=== PATIENT | female | born 1945 | race Two or more races ===

== ENCOUNTER 2022-04-23 15:40 | Emergency (ER) | payer OTHER, SELFPAY ==
[2022-04-23 16:48] VITALS: BP 160/49; PULSE 88; RESP 18; TEMP 36.8; O2SAT 99; BMI 17.4
--- OUTSIDE RECORDS SUMMARY | 2022-04-23 23:16 | XMS_ITS | Continuity of Care Document ---
:1945 Author Organization [facility] Address [address] [place] [id number]- Care Team Providers Name Role Phone Wili Chahal MD, Savita Heaton Primary Care Physician [place] [facility] [place] - 12/12/[address] [address]- Encounter Diagnosis Renal insufficiency (Final) - 12/05/21 Hyperkalemia (Final) - 12/05/21 Abdominal pain (Final) - 12/05/21 Jejunostomy tube present (Final) - 12/05/21 Discharge Disposition: A-Transfer VNA/Home Health Attending Physician: Alva Lindsay MD Admitting Physician: Bronson Harrell MD Referring Physician: Not on Staff, Referring MD Allergies, Adverse Reactions, Alerts Substance Reaction Severity Status folic acid Active Immunizations Given and Recorded Vaccine Date Status Refusal Reason SARS-CoV-2 (COVID-19) mRNA BNT-162b2 vac 12/15/20 Recorde d SARS-CoV-2 (COVID-19) mRNA BNT-162b2 vac 11/24/20 Recorde d Medications acetaminophen 650 mg oral tablet, extended release 1 tablet = 650 mg, By Mouth, Every 8 hours, PRN Pain , Mild, # 30 tablet, 0 Refills, Maintenance, 12/12/21 10:53:00 EDT, ER Tablet, Partial fill upon patient request if the prescription is for a schedule II opioid drug. Start Date: 12/12/21 Stop Date: 12/22/21 Status: Orderedacetaminophen/butalbital/caffeine 325 mg-50 mg-40 mg oral tablet 1 tablet, By Mouth, 3 times a day, PRN as needed, Maintenance, 12/05/21 19:11:00 EDT, Tablet Start Date: 12/05/21 Status: OrderedALPRAZolam 0.5 mg oral tablet 0.5 mg, 1, tablet, By Mouth, Daily, PRN, Maintenance, as needed for anxiety, 12/05/21 19:14:00 EDT Start Date: 12/05/21 Status: Orderedatorvastatin 40 mg oral tablet 1 tablet = 40 mg, By Mouth, Daily, Maintenance, 12/05/21 19:13:00 EDT, Tablet Start Date: 12/05/21 Status: OrderedCalcium Carbonate = 600 mg, By Mouth, Daily, 0 Refills, Maintenance, 08/16/13 17:47:24 Start Date: 08/16/13 Status: Orderedcholecalciferol 2000 intl units oral capsule 1 capsule = 50 mcg, By Mouth, Daily, Maintenance, 12/05/21 19:15:00 EDT, Capsule Start Date: 12/05/21 Status: OrderedEliquis 5 mg oral tablet 1 tablet = 5 mg, By Mouth, 2 times a day, Maintenance, 12/05/21 19:14:00 EDT, Tablet Start Date: 12/05/21 Status: Orderedenalapril 20 mg oral tablet 1 tablet = 20 mg, By Mouth, Daily, 0 Refills, 04/22/12 16:37:34 EDT, Tablet Start Date: 04/22/12 Status: Orderedferrous sulfate 325 mg oral enteric coated tablet 325 mg, 1, tablet, By Mouth, Daily, # 30 tablet, Refills 0, Maintenance, 12/12/21 10:53:00 EDT, Partial fill upon patient request if the prescription is for a schedule II opioid drug. Start Date: 12/12/21 Status: Orderedloperamide 2 mg oral capsule 2 mg, 1, capsule, By Mouth, 2 times a day, Maintenance, 12/05/21 19:13:00 EDT Start Date: 12/05/21 Status: Orderedmirtazapine 7.5 mg oral tablet 1 tablet = 7.5 mg, By Mouth, Daily at bedtime, Maintenance, 12/05/21 19:13:00 EDT Start Date: 12/05/21 Status: Orderedpantoprazole 40 mg oral delayed release tablet 1 tablet = 40 mg, By Mouth, Daily, Maintenance, 12/05/21 19:13:00 EDT, EC Tablet Start Date: 12/05/21 Status: OrderedProAir HFA 2 puffs, Inhalation, 4 times a day, PRN Wheezing/Shortness of Breath, 0 Refills, Maintenance, 08/16/13 8:23:53 EST Start Date: 08/16/13 Status: OrderedRestasis 1 drops, Eyes, Both, 2 times a day, 0 Refills, Maintenance, 12/12/21 10:55:00 EDT, Partial fill uponpatient request if the prescription is for a schedule II opioid drug. Start Date: 12/12/21 Status: Orderedsertraline 50 mg oral tablet 1 tablet = 50 mg, By Mouth, Daily, Maintenance, 12/05/21 19:14:00 EDT, Tablet Start Date: 12/05/21 Status: Orderedtemazepam 30 mg oral capsule 1 capsule = 30 mg, By Mouth, Daily at bedtime, 0 Refills, Maintenance, 08/16/13 8:24:25 EST, Capsule Start Date: 08/16/13 Status: Orderedthiamine 100 mg oral tablet 100 mg, 1, tablet, By Mouth, Daily, Maintenance, 12/05/21 19:15:00 EDT Start Date: 12/05/21 Status: OrderedVitamin C 500 mg oral tablet 1 tablet = 500 mg, By Mouth, Daily, Maintenance, 12/05/21 19:15:00 EDT, Tablet Start Date: 12/05/21 Status: Ordered Problem List Condition Effective Dates Status Health Status Informant Leukocytosis(Confirmed) Active PVD (peripheral vascular disease) with Active claudication(Confirmed) Underweight(Confirmed) Active Vital Signs Most recent to oldest 1 2 3 [Reference Range]: Height 147 cm 147 cm 147 cm (12/12/21 9:23 AM) (12/12/21 6:22 AM) (12/11/21 10: 25 PM) Weight 36 kg 36 kg (12/05/21 10:55 PM) (12/05/21 9:19 PM) Oxygen Saturation [94-100 %] 100 % 100 % 99 % (12/12/21 9:23 AM) (12/12/21 6:22 AM) (12/11/21 10: 25 PM) Pulse Rate [55-90 bpm] 63 bpm 70 bpm 61 bpm (12/12/21 9:23 AM) (12/12/21 6:22 AM) (12/11/21 10: 25 PM) Body Mass Index [18.5-24.99] 16.66 *L* (12/05/21 9:19 PM) Blood Pressure [90-138/55-84 111/48 mm Hg 94/57 mm Hg 112 /52 mm Hg mm Hg] (12/12/21 9:23 AM) (12/12/21 6:22 AM) (12/11/21 10: 25 PM) Respiratory Rate [16-30 18 br/min 16 br/min 14 br/mi n br/min] (12/12/21 9:23 AM) (12/12/21 6:22 AM) *L* (12/11/21 10:25 P M) Temperature [96.8-100.4 98.4 DegF 97.6 DegF 98.0 Deg F DegF] (12/12/21 6:22 AM) (12/11/21 10:25 PM) (12/11/21 6: 10 PM) Mode of Delivery (Oxygen) Room air Room air Room a ir (12/12/21:23 AM) (12/12/21 6:22 AM) (12/11/21 10: 25 PM) Blood pressure sites Arm, right Arm, left Arm, right (12/12/21:23 AM) (12/12/21:22 AM) (12/11/21 10: 25 PM) Temperature Route Oral Oral Oral (12/12/21 6:22 AM) (12/11/21 10:25 PM) (12/11/21 6: 10 PM) Dry Weight 36 kg (12/05/21: PM) Weight Obtained Via Bed scale (12/05/21 9:19 PM)
== END 2022-04-23 23:15 | disposition left against medical advice (07) ==
PROVIDERS: Emergency Provider Emergency Medicine
DX: R10.9 Unspecified abdominal pain (principal); Z93.3 Colostomy status
CPT/HCPCS: 99202; 99281; 99282

== ENCOUNTER 2022-06-12 17:18 | Outpatient (REF) | payer OTHER, SELFPAY ==
[2022-06-12 17:42] LABS: Amphetamine Screen Urine Not Detected (Not Detect); Barbiturates, Urine POSITIVE (Not Detect); Benzodiazepines Screen Urine POSITIVE (Not Detect); Cannabinoid Screen Urine Not Detected (Not Detect); Cocaine Screen Urine Not Detected (Not Detect); Fentanyl, urine Not Detected (Not Detect); Opiate Screen Urine Not Detected (Not Detect); Phencyclidine Screen Urine Not Detected (Not Detect)
[2022-06-21 07:52] LABS: Codeine, Ur NEGATIVE; Hydrocodone, Ur NEGATIVE; Oxycodone, Ur NEGATIVE
[2022-06-21 07:53] LABS: Hydromorphone, Ur NEGATIVE; Morphine, Ur NEGATIVE; Oxymorphone, Ur NEGATIVE
[2022-06-21 07:54] LABS: Lorazepam GCMS Urine NEGATIVE; Nordiazepam, GCMS Urine NEGATIVE; Norhydrocodone, Ur NEGATIVE; Noroxycodone, Ur NEGATIVE; Oxazepam, GCMS Urine 3440
== END 2022-06-12 17:19 | disposition home or self-care (01) ==
LOC: HO.LNP 17:18
PROVIDERS: Visit Provider Internal Medicine
DX: F11.20 Opioid dependence, uncomplicated (principal); Z79.899 Other long term (current) drug therapy
CPT/HCPCS: 80307; 80346; 80364; 80365

== ENCOUNTER → 2022-09-03 13:00 | Outpatient (BNVA) | payer OTHER, SELFPAY | PROVIDERS: PCP Internal Medicine; Visit Provider Surgery | DX: Z93.4 Other artificial openings of gastrointestinal tract status (principal) | CPT/HCPCS: 99202 ==

== ENCOUNTER 2023-03-25 14:34 | Outpatient (AMB) | payer OTHER, SELFPAY ==
--- NOTE | 2023-03-25 14:42 | MHC.PC.OV ---
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 Accompanied by: Grand Child/ Proxy Allergies folic acid [FOLIC ACID] Allergy (Mild, Verified 03/25/23 15:03) AGITATION, visual hallucinations Medication List - Last Reconciled 03/25/23 by Savita Chahal MD adhesive tape ([employer]) As directed amlodipine 5 mg PO DAILY 90 days apixaban (Eliquis) 5 mg PO BID 90 days ascorbic acid (vitamin C) 500 mg PO DAILY 90 days atorvastatin 40 mg PO BEDTIME 90 days cholecalciferol (vitamin D3) 50 mcg PO DAILY 60 days clotrimazole 1% 1 appl topical BID 4 weeks [colostomy supplies pouch and paste As directed] cyanocobalamin (vitamin B-12) 1,000 mcg PO DAILY 90 days diltiazem HCl 240 mg PO DAILY 90 days enalapril maleate 20 mg PO DAILY 90 days [enteralite infinity bags As directed] ferrous sulfate 325 mg PO BID 90 days fluticasone furoate-vilanterol 100-25 mcg/dose inhalation food supplemt, lactose-reduced (Ensure oral liquid) 1 ea PO TID 30 days [gauze split As directed] hydrochlorothiazide 25 mg PO DAILY loperamide 2 mg PO BID 30 days mirtazapine 7.5 mg PO BEDTIME 90 days ostomy supplies As directed pantoprazole 40 mg PO DAILY sertraline 50 mg PO DAILY temazepam 30 mg PO BEDTIME PRN thiamine HCl (vitamin B1) 100 mg PO DAILY 90 days underpads (Certainty Underpads) As directed vitamin A 10,000 units PO DAILY zinc sulfate 220 mg PO DAILY Tobacco use date assessed: 10/14/22 Fall risk assessment: No Falls in past year Last assessed Fall Risk: 03/25/23 Dental Screening Dental Screen Date: 03/25/23 Did you have a dental visit in the last 12 months?: No Did you have a dental problem in the last 6 months where you did not have access to dental care?: No Was dental information given to patient?: Patient has dentist HPI HPI Comments History of Present Illness Details This is a 77-year-old female with hypertension, atrial fibrillation, pure hypercholesterolemia, and mild recurrent major depression that comes today as hospital discharge follow-up with discharge date 03/21/2023 due to accidental removal of jejunostomy to the was placed in the hospital again. Blood pressure stable. Atrial fibrillation on chronic anticoagulation and denies any active bleeding also had anemia requiring blood transfusion recently. Lipid panel will be order. Depression well controlled with mirtazapine. Complains of occasional headaches. Walks with a cane for gait stability. Has developed stage II sacral ulcer and has some stage I small lumbar ulcer too. No chest pain or shortness of breath. Accompanied by granddaughter which she is her healthcare proxy. [facility] [place] Medical History (Updated 03/25/23 @ 15:36 by Savita Chahal MD) Afib Anemia B12 deficiency Chronic GERD Colostomy in place Essential hypertension Hospital discharge follow-up Jaundice Jejunostomy present Jejunostomy tube leak Localized swelling of both lower legs Malnutrition Mild recurrent major depression Pneumonia Pure hypercholesterolemia Surgical History H/O ileostomy Family History Mother Diabetes Father No problems noted. Social History Housing: Apartment Alcohol intake: former Patient Tobacco Use Status: Current someday Tobacco user Tobacco use type: Cigarette Cigarettes Per Day: 1 e-Cigarette/Vaping Use: Never Used Second Hand Smoke Exposure: No service: No Current occupational status: retired Cognitive needs: Yes Hearing needs: No Vision needs: No Questionnaire Thrive Questionnaire Date Thrive assessed: 10/14/22 JULIO-7 AMB Questionnaire JULIO-7 Date JULIO - 7 assessed: 10/14/22 Source: Developed by Drs. Enoch Vicente, Helena Mares, Gus Knight and colleagues, with an educational pam from [employer]. Review of Systems Const All systems reviewed & are unremarkable except as noted in HPI and below Eyes Reports no additional complaints, Denies change in vision and Denies other visual disturbances Card Denies chest pain at rest, Denies chest pain with activity, Denies edema, Denies irregular heart rhythm, Denies claudication, Denies dyspnea, Denies dyspnea on exertion, Denies orthopnea, Denies paroxysmal nocturnal dyspnea and Denies slow heart rate Resp Denies cough, Denies dyspnea and Denies dyspnea on exertion GI Denies abdominal pain, Denies change in bowel habits, Denies excessive flatus, Denies nausea and Denies vomiting Denies urinary incontinence, Denies urinary hesitancy and Denies urinary urgency Musc Denies atrophy, Denies deformity and Denies limited range of motion Skin/Breast Denies bleeding lesions, Denies changing lesions, Reports lesions and Denies rash Physical exam (Primary Care) Vital Signs: Last Vital Signs BP 122/58 L 03/25/23 14:43 BMI result Body Mass Index 16.0 Tobacco/Smoking Status: Tobacco use Status Tobacco use date assessed 10/14/22 03/25/23 14:51 Patient Tobacco Use Status Current someday Tobacco 03/25/23 14:51 Tobacco use type Cigarette 03/25/23 14:51 e-Cigarette/Vaping Use Never Used 03/25/23 14:51 Thrive Assessment: Date of Thrive Assessment Date Thrive assessed 10/14/22 03/25/23 14:51 Const Limitations: ambulation with cane Eyes General: appearance normal, both eyes and all related structures Eyelids: Yes eyelids normal Conjunctivae: conjunctivae normal Neck Neck: Yes normal visual inspection and Yes supple Resp Effort & Inspection: normal respiratory effort Auscultation: clear to auscultation bilaterally Cardio Jugular venous distension: no JVD Rate: regular rate Rhythm: regular rhythm Heart sounds: S1 normal heart sound present and S2 normal heart sound present GI Other: PEG tube in place Inspection: Yes normal to inspection Palpation (GI): Soft to palpation and nontender Auscultation: normal bowel sounds Skin Other: stage 1 decubitus ulcer in lumbar and stage 2 sacral ulcer Extrem General: Yes full ROM Assessment and Plan Assessment & Plan (1) Hospital discharge follow-up: Code(s): Z09 - Encounter for follow-up examination after completed treatment for conditions other than malignant neoplasm Plan: Discharge date 03/21/2023 due to accidental removal are all jejunostomy tube. Was successfully reinserted. (2) Jejunostomy present: Code(s): Z93.4 - Other artificial openings of gastrointestinal tract status Plan: Successfully reinserted (3) Essential hypertension: Code(s): I10 - Essential (primary) hypertension Plan: Continue enalapril, hydrochlorothiazide and amlodipine. Blood pressure goal is equal or less than 130/80. (4) Pure hypercholesterolemia: Code(s): E78.00 - Pure hypercholesterolemia, unspecified Plan: Continue statins (5) Afib: Code(s): I48.91 - Unspecified atrial fibrillation Plan: Continue Eliquis (6) Mild recurrent major depression: Code(s): F33.0 - Major depressive disorder, recurrent, mild Plan: Continue mirtazapine (7) Stage 2 skin ulcer of sacral region: Code(s): L98.429 - Non-pressure chronic ulcer of back with unspecified severity Plan: Advised to change position every 2 hours. Orders: Orders Vitamin B12 and Folate Today E53.8 - Deficiency of other specified B group vitamins Comprehensive [place]. Panel Fast Today N18.30 - Chronic kidney disease, stage 3 unspecified IRON PROFILE Today D64.9 - Anemia, unspecified Lipid Panel Today E78.5 - Hyperlipidemia, unspecified Vitamin D 25-OH Total Today E55.9 - Vitamin D deficiency, unspecified Complete Blood Count Auto Diff Today D64.9 - Anemia, unspecified Medications: New white petrolatum 41% ([employer]) 1 appl topical DAILY 30 days PRN 50 grams 2RF dry skin L98.429 - Non-pressure chronic ulcer of back with unspecified severity adhesive tape ([employer]) As directed 250 ea 6RF Z93.4 - Other artificial openings of gastrointestinal tract status Coding Level of Care Code TCM Mod MDM <= 7 Days Diagnoses Hospital discharge follow-up Z09 Jejunostomy present Z93.4 Essential hypertension I10 Pure hypercholesterolemia E78.00 Afib I48.91 Mild recurrent major depression F33.0 Stage 2 skin ulcer of sacral region L98.429 Time Spent (min) 28
[2023-03-25 14:43] VITALS: BP 122/58; BMI 16.0
== END 2023-03-25 15:15 | disposition home or self-care (01) ==
PROVIDERS: PCP Internal Medicine; Visit Provider Internal Medicine
DX: I10 Essential (primary) hypertension (principal); F33.0 Major depressive disorder, recurrent, mild; L98.429 Non-pressure chronic ulcer of back with unspecified severity; Z93.4 Other artificial openings of gastrointestinal tract status; I48.91 Unspecified atrial fibrillation; Z09 Encounter for follow-up examination after completed treatment for conditions other than malignant neoplasm; E78.00 Pure hypercholesterolemia, unspecified
CPT/HCPCS: 99214

== ENCOUNTER 2023-06-19 06:33 | Outpatient (REF) | payer OTHER, SELFPAY ==
[2023-06-19 06:53] LABS: SCAN SMEAR FLAG 1
[2023-06-19 06:55] LABS: Basophils Absolute Auto 0.1 X10*3/uL (0.0-0.2); Basophils Percent Auto 1.3 % (0-2); Eosinophils Absolute Auto 0.7 X10*3/uL (0.0-0.4); Eosinophils Percent Auto 8.2 % (0-4); Hematocrit 31.1 % (37.0-47.0); Hemoglobin 9.4 g/dl (12.0-16.0); Imm Gran Abs Auto 0.05 X10*3/uL (0.00-0.03); Imm Gran Pct Auto 0.6 % (0.0-0.4); Lymphocytes Absolute Auto 1.6 X10*3/uL (1.2-4.9); Lymphocytes Percent Auto 18.8 % (20-40); MANUAL DIFF FLAG SCAN; Mean Corpuscular HGB Conc 30.2 g/dl (31.0-35.0); Mean Corpuscular Hemoglobin 26.2 pg (27.0-33.0); Mean Corpuscular Volume 86.6 fL (80.0-98.0); Monocytes Absolute Auto 0.8 X10*3/uL (0.1-1.2); Monocytes Percent Auto 9.8 % (2-11); Neutrophils Absolute Auto 5.1 x10*3/uL (2.0-8.3); Neutrophils Percent Auto 61.3 % (45-73); PLT CLUMP 1; Red Blood Count 3.59 X10*6/uL (4.20-5.50); Red Cell Distribution Width 18.6 % (11.0-16.0)
[2023-06-19 06:59] LABS: Alanine Aminotransferase 26 U/L (0-31); Albumin Level 2.8 g/dL (3.5-5.0); Alkaline Phosphatase 97 U/L (39-117); Anion Gap 13 (12-20); Aspartate Amino Transferase 21 U/L (5-31); Bilirubin Total 0.5 mg/dL (0.0-1.0); Blood Urea Nitrogen 22 mg/dL (9-16); Calcium 10.1 mg/dL (8.4-10.2); Carbon Dioxide 19 mmol/L (22-29); Chloride 111 mmol/L (96-108); Estimated Glomerular Filt Rate > 60; Glucose Random 102 mg/dL (60-115); Potassium 4.1 mmol/L (3.3-5.1); Sodium 139 mmol/L (135-145); Total Protein 6.3 g/dL (6.5-8.0)
[2023-06-19 07:20] LABS: PLT ABN DIST 1
[2023-06-19 08:05] LABS: Platelet Count 263 X10*3/uL (160-400); White Blood Count 8.3 X10*3/uL (4.8-10.8)
[2023-06-19 08:06] LABS: SLIDE REVIEW VERIFIED
== END 2023-06-19 06:34 | disposition home or self-care (01) ==
LOC: HO.MMNH2L 06:33
PROVIDERS: Visit Provider Family Medicine
DX: I10 Essential (primary) hypertension (principal)
CPT/HCPCS: 36415; 80053; 85025

== ENCOUNTER 2023-06-22 06:31 | Outpatient (REF) | payer OTHER, SELFPAY ==
[2023-06-22 07:27] LABS: Basophils Percent Auto 1.1 % (0-2); PLT CLUMP 1
[2023-06-22 07:31] LABS: Basophils Absolute Auto 0.1 X10*3/uL (0.0-0.2); Eosinophils Absolute Auto 0.7 X10*3/uL (0.0-0.4); Eosinophils Percent Auto 8.7 % (0-4); Hematocrit 33.7 % (37.0-47.0); Imm Gran Abs Auto 0.05 X10*3/uL (0.00-0.03); Imm Gran Pct Auto 0.7 % (0.0-0.4); Lymphocytes Absolute Auto 1.4 X10*3/uL (1.2-4.9); Lymphocytes Percent Auto 17.9 % (20-40); MANUAL DIFF FLAG SCAN; Mean Corpuscular HGB Conc 29.7 g/dl (31.0-35.0); Mean Corpuscular Hemoglobin 26.5 pg (27.0-33.0); Mean Corpuscular Volume 89.2 fL (80.0-98.0); Monocytes Absolute Auto 0.6 X10*3/uL (0.1-1.2); Monocytes Percent Auto 8.3 % (2-11); Neutrophils Absolute Auto 4.8 x10*3/uL (2.0-8.3); Neutrophils Percent Auto 63.3 % (45-73); PLT ABN DIST 1; Red Blood Count 3.78 X10*6/uL (4.20-5.50); Red Cell Distribution Width 18.9 % (11.0-16.0); SCAN SMEAR FLAG 1
[2023-06-22 07:35] LABS: Anion Gap 12 (12-20); Blood Urea Nitrogen 24 mg/dL (9-16); Carbon Dioxide 17 mmol/L (22-29); Chloride 112 mmol/L (96-108); Estimated Glomerular Filt Rate > 60; Glucose Random 79 mg/dL (60-115); Potassium 4.7 mmol/L (3.3-5.1); Sodium 136 mmol/L (135-145)
[2023-06-22 08:26] LABS: Mean Platelet Volume 13.4 fL (9.4-12.3); Platelet Count 350 X10*3/uL (160-400); SLIDE REVIEW VERIFIED; White Blood Count 7.6 X10*3/uL (4.8-10.8)
== END 2023-06-22 06:32 | disposition home or self-care (01) ==
LOC: HO.MMNH2L 06:31
PROVIDERS: Visit Provider Family Medicine
DX: I10 Essential (primary) hypertension (principal)
CPT/HCPCS: 36415; 80048; 85025

== ENCOUNTER 2023-06-29 07:29 | Outpatient (REF) | payer OTHER, SELFPAY ==
[2023-06-29 06:08] LABS: MANUAL DIFF FLAG NO
[2023-06-29 06:57] LABS: Basophils Absolute Auto 0.1 X10*3/uL (0.0-0.2); Basophils Percent Auto 1.1 % (0-2); Eosinophils Absolute Auto 0.6 X10*3/uL (0.0-0.4); Eosinophils Percent Auto 8.6 % (0-4); Hematocrit 30.5 % (37.0-47.0); Hemoglobin 9.3 g/dl (12.0-16.0); Imm Gran Abs Auto 0.04 X10*3/uL (0.00-0.03); Imm Gran Pct Auto 0.5 % (0.0-0.4); Lymphocytes Absolute Auto 1.6 X10*3/uL (1.2-4.9); Lymphocytes Percent Auto 21.7 % (20-40); Mean Corpuscular HGB Conc 30.5 g/dl (31.0-35.0); Mean Corpuscular Hemoglobin 26.3 pg (27.0-33.0); Mean Corpuscular Volume 86.4 fL (80.0-98.0); Mean Platelet Volume 12.1 fL (9.4-12.3); Monocytes Absolute Auto 0.5 X10*3/uL (0.1-1.2); Monocytes Percent Auto 7.2 % (2-11); Neutrophils Absolute Auto 4.5 x10*3/uL (2.0-8.3); Neutrophils Percent Auto 60.9 % (45-73); Platelet Count 383 X10*3/uL (160-400); Red Blood Count 3.53 X10*6/uL (4.20-5.50); Red Cell Distribution Width 18.4 % (11.0-16.0); White Blood Count 7.4 X10*3/uL (4.8-10.8)
[2023-06-29 07:19] LABS: Anion Gap 12 (12-20); Blood Urea Nitrogen 29 mg/dL (9-16); Carbon Dioxide 17 mmol/L (22-29); Chloride 114 mmol/L (96-108); Estimated Glomerular Filt Rate > 60; Glucose Random 79 mg/dL (60-115); Potassium 4.4 mmol/L (3.3-5.1); Sodium 139 mmol/L (135-145)
== END 2023-06-29 07:30 | disposition home or self-care (01) ==
LOC: HO.MMNH2L 07:29
PROVIDERS: Visit Provider Family Medicine
DX: I10 Essential (primary) hypertension (principal)
CPT/HCPCS: 36415; 80048; 85025

== ENCOUNTER 2023-07-06 07:19 | Outpatient (REF) | payer OTHER, SELFPAY ==
[2023-07-06 06:04] LABS: MANUAL DIFF FLAG NO
[2023-07-06 06:38] LABS: Basophils Absolute Auto 0.1 X10*3/uL (0.0-0.2); Basophils Percent Auto 0.9 % (0-2); Eosinophils Absolute Auto 0.6 X10*3/uL (0.0-0.4); Eosinophils Percent Auto 8.4 % (0-4); Hematocrit 29.7 % (37.0-47.0); Hemoglobin 9.1 g/dl (12.0-16.0); Imm Gran Abs Auto 0.02 X10*3/uL (0.00-0.03); Imm Gran Pct Auto 0.3 % (0.0-0.4); Lymphocytes Absolute Auto 1.6 X10*3/uL (1.2-4.9); Lymphocytes Percent Auto 22.1 % (20-40); Mean Corpuscular HGB Conc 30.6 g/dl (31.0-35.0); Mean Corpuscular Hemoglobin 26.5 pg (27.0-33.0); Mean Corpuscular Volume 86.3 fL (80.0-98.0); Mean Platelet Volume 12.6 fL (9.4-12.3); Monocytes Absolute Auto 0.5 X10*3/uL (0.1-1.2); Monocytes Percent Auto 6.9 % (2-11); Neutrophils Absolute Auto 4.3 x10*3/uL (2.0-8.3); Neutrophils Percent Auto 61.4 % (45-73); Platelet Count 206 X10*3/uL (160-400); Red Blood Count 3.44 X10*6/uL (4.20-5.50); Red Cell Distribution Width 17.9 % (11.0-16.0)
[2023-07-06 06:53] LABS: Anion Gap 13 (12-20); Blood Urea Nitrogen 25 mg/dL (9-16); Calcium 9.3 mg/dL (8.4-10.2); Carbon Dioxide 16 mmol/L (22-29); Chloride 110 mmol/L (96-108); Estimated Glomerular Filt Rate > 60; Glucose Random 93 mg/dL (60-115); Potassium 4.7 mmol/L (3.3-5.1); Sodium 134 mmol/L (135-145)
== END 2023-07-06 07:20 | disposition home or self-care (01) ==
LOC: HO.MMNH2L 07:19
PROVIDERS: Visit Provider Family Medicine
DX: I10 Essential (primary) hypertension (principal)
CPT/HCPCS: 36415; 80048; 85025

== ENCOUNTER 2023-07-13 06:27 | Outpatient (REF) | payer OTHER, SELFPAY ==
[2023-07-13 06:03] LABS: MANUAL DIFF FLAG NO
[2023-07-13 06:57] LABS: Basophils Percent Auto 0.4 % (0-2); Eosinophils Absolute Auto 0.6 X10*3/uL (0.0-0.4); Eosinophils Percent Auto 9.2 % (0-4); Hemoglobin 9.5 g/dl (12.0-16.0); Imm Gran Abs Auto 0.02 X10*3/uL (0.00-0.03); Imm Gran Pct Auto 0.3 % (0.0-0.4); Lymphocytes Absolute Auto 1.3 X10*3/uL (1.2-4.9); Lymphocytes Percent Auto 19.9 % (20-40); Mean Corpuscular HGB Conc 30.6 g/dl (31.0-35.0); Mean Corpuscular Hemoglobin 26.8 pg (27.0-33.0); Mean Corpuscular Volume 87.3 fL (80.0-98.0); Monocytes Absolute Auto 0.4 X10*3/uL (0.1-1.2); Monocytes Percent Auto 6.5 % (2-11); Neutrophils Absolute Auto 4.3 x10*3/uL (2.0-8.3); Neutrophils Percent Auto 63.7 % (45-73); Red Blood Count 3.55 X10*6/uL (4.20-5.50); Red Cell Distribution Width 17.6 % (11.0-16.0); White Blood Count 6.7 X10*3/uL (4.8-10.8)
[2023-07-13 07:02] LABS: Platelet Count 146 X10*3/uL (160-400)
[2023-07-13 07:12] LABS: Anion Gap 12 (12-20); Blood Urea Nitrogen 27 mg/dL (9-16); Calcium 9.7 mg/dL (8.4-10.2); Carbon Dioxide 17 mmol/L (22-29); Chloride 113 mmol/L (96-108); Estimated Glomerular Filt Rate > 60; Glucose Random 107 mg/dL (60-115); Potassium 4.4 mmol/L (3.3-5.1); Sodium 138 mmol/L (135-145)
== END 2023-07-13 06:28 | disposition home or self-care (01) ==
LOC: HO.MMNH2L 06:27
PROVIDERS: Visit Provider Family Medicine
DX: I10 Essential (primary) hypertension (principal)
CPT/HCPCS: 36415; 80048; 85025

== ENCOUNTER 2023-07-21 06:35 | Outpatient (REF) | payer OTHER, SELFPAY ==
[2023-07-21 06:16] LABS: MANUAL DIFF FLAG NO
[2023-07-21 06:49] LABS: Basophils Percent Auto 0.7 % (0-2); Eosinophils Absolute Auto 0.6 X10*3/uL (0.0-0.4); Eosinophils Percent Auto 9.7 % (0-4); Hematocrit 30.5 % (37.0-47.0); Hemoglobin 9.4 g/dl (12.0-16.0); Imm Gran Abs Auto 0.01 X10*3/uL (0.00-0.03); Imm Gran Pct Auto 0.2 % (0.0-0.4); Lymphocytes Absolute Auto 1.5 X10*3/uL (1.2-4.9); Lymphocytes Percent Auto 24.3 % (20-40); Mean Corpuscular HGB Conc 30.8 g/dl (31.0-35.0); Mean Corpuscular Volume 84.5 fL (80.0-98.0); Monocytes Absolute Auto 0.5 X10*3/uL (0.1-1.2); Monocytes Percent Auto 8.7 % (2-11); Neutrophils Absolute Auto 3.5 x10*3/uL (2.0-8.3); Neutrophils Percent Auto 56.4 % (45-73); Platelet Count 159 X10*3/uL (160-400); Red Blood Count 3.61 X10*6/uL (4.20-5.50); Red Cell Distribution Width 17.1 % (11.0-16.0); White Blood Count 6.1 X10*3/uL (4.8-10.8)
[2023-07-21 06:55] LABS: Anion Gap 12 (12-20); Blood Urea Nitrogen 33 mg/dL (9-16); Calcium 9.7 mg/dL (8.4-10.2); Carbon Dioxide 19 mmol/L (22-29); Chloride 112 mmol/L (96-108); Estimated Glomerular Filt Rate > 60; Glucose Random 90 mg/dL (60-115); Potassium 5.1 mmol/L (3.3-5.1); Sodium 138 mmol/L (135-145)
== END 2023-07-21 06:36 | disposition home or self-care (01) ==
LOC: HO.MMNH2L 06:35
PROVIDERS: Visit Provider Family Medicine
DX: I10 Essential (primary) hypertension (principal)
CPT/HCPCS: 36415; 80048; 85025

== ENCOUNTER 2023-07-28 06:30 | Outpatient (REF) | payer OTHER, SELFPAY ==
[2023-07-28 06:16] LABS: MANUAL DIFF FLAG NO
[2023-07-28 06:27] LABS: Basophils Absolute Auto 0.1 X10*3/uL (0.0-0.2); Basophils Percent Auto 0.9 % (0-2); Eosinophils Absolute Auto 0.4 X10*3/uL (0.0-0.4); Eosinophils Percent Auto 5.3 % (0-4); Hematocrit 36.1 % (37.0-47.0); Hemoglobin 11.1 g/dl (12.0-16.0); Imm Gran Abs Auto 0.01 X10*3/uL (0.00-0.03); Imm Gran Pct Auto 0.2 % (0.0-0.4); Lymphocytes Absolute Auto 1.4 X10*3/uL (1.2-4.9); Lymphocytes Percent Auto 21.7 % (20-40); Mean Corpuscular HGB Conc 30.7 g/dl (31.0-35.0); Mean Corpuscular Volume 84.5 fL (80.0-98.0); Mean Platelet Volume 12.5 fL (9.4-12.3); Monocytes Absolute Auto 0.4 X10*3/uL (0.1-1.2); Monocytes Percent Auto 5.7 % (2-11); Neutrophils Absolute Auto 4.4 x10*3/uL (2.0-8.3); Neutrophils Percent Auto 66.2 % (45-73); Platelet Count 243 X10*3/uL (160-400); Red Blood Count 4.27 X10*6/uL (4.20-5.50); Red Cell Distribution Width 16.4 % (11.0-16.0); White Blood Count 6.6 X10*3/uL (4.8-10.8)
[2023-07-28 06:55] LABS: Anion Gap 11 (12-20); Blood Urea Nitrogen 21 mg/dL (9-16); Calcium 10.1 mg/dL (8.4-10.2); Carbon Dioxide 14 mmol/L (22-29); Chloride 118 mmol/L (96-108); Estimated Glomerular Filt Rate > 60; Glucose Random 90 mg/dL (60-115); Sodium 139 mmol/L (135-145)
== END 2023-07-28 06:31 | disposition home or self-care (01) ==
LOC: HO.MMNH2L 06:30
PROVIDERS: Visit Provider Family Medicine
DX: I10 Essential (primary) hypertension (principal)
CPT/HCPCS: 36415; 80048; 85025

== ENCOUNTER 2023-08-03 10:40 | Outpatient (REF) | payer OTHER, SELFPAY | END 2023-08-03 10:41 | disposition home or self-care (01) | LOC: HO.MMNH2L 10:40 | PROVIDERS: Visit Provider Family Medicine | DX: I10 Essential (primary) hypertension (principal) | CPT/HCPCS: 36415; 80048; 85025 ==

== ENCOUNTER 2023-08-10 06:58 | Outpatient (REF) | payer OTHER, SELFPAY ==
[2023-08-10 06:30] LABS: MANUAL DIFF FLAG NO
[2023-08-10 06:56] LABS: Basophils Absolute Auto 0.1 X10*3/uL (0.0-0.2); Basophils Percent Auto 0.8 % (0-2); Eosinophils Absolute Auto 0.4 X10*3/uL (0.0-0.4); Eosinophils Percent Auto 3.8 % (0-4); Hematocrit 35.7 % (37.0-47.0); Hemoglobin 11.1 g/dl (12.0-16.0); Imm Gran Abs Auto 0.03 X10*3/uL (0.00-0.03); Imm Gran Pct Auto 0.3 % (0.0-0.4); Lymphocytes Absolute Auto 1.4 X10*3/uL (1.2-4.9); Lymphocytes Percent Auto 14.6 % (20-40); Mean Corpuscular HGB Conc 31.1 g/dl (31.0-35.0); Mean Corpuscular Volume 83.6 fL (80.0-98.0); Monocytes Absolute Auto 0.8 X10*3/uL (0.1-1.2); Monocytes Percent Auto 8.2 % (2-11); Neutrophils Absolute Auto 6.7 x10*3/uL (2.0-8.3); Neutrophils Percent Auto 72.3 % (45-73); Platelet Count 158 X10*3/uL (160-400); Red Blood Count 4.27 X10*6/uL (4.20-5.50); White Blood Count 9.2 X10*3/uL (4.8-10.8)
[2023-08-10 07:15] LABS: Anion Gap 10 (12-20); Blood Urea Nitrogen 36 mg/dL (9-16); Carbon Dioxide 16 mmol/L (22-29); Chloride 113 mmol/L (96-108); Estimated Glomerular Filt Rate > 60; Glucose Random 99 mg/dL (60-115); Potassium 4.6 mmol/L (3.3-5.1); Sodium 134 mmol/L (135-145)
== END 2023-08-10 06:59 | disposition home or self-care (01) ==
LOC: HO.MMNH2L 06:58
PROVIDERS: Visit Provider Family Medicine
DX: I10 Essential (primary) hypertension (principal)
CPT/HCPCS: 36415; 80048; 85025

== ENCOUNTER 2023-08-17 06:27 | Outpatient (REF) | payer OTHER, SELFPAY ==
[2023-08-17 06:10] LABS: MANUAL DIFF FLAG NO
[2023-08-17 06:48] LABS: Anion Gap 8 (12-20); Blood Urea Nitrogen 33 mg/dL (9-16); Calcium 9.4 mg/dL (8.4-10.2); Carbon Dioxide 17 mmol/L (22-29); Chloride 116 mmol/L (96-108); Estimated Glomerular Filt Rate > 60; Glucose Random 95 mg/dL (60-115); Potassium 4.7 mmol/L (3.3-5.1); Sodium 136 mmol/L (135-145)
[2023-08-17 06:59] LABS: Basophils Absolute Auto 0.1 X10*3/uL (0.0-0.2); Basophils Percent Auto 0.6 % (0-2); Eosinophils Absolute Auto 0.4 X10*3/uL (0.0-0.4); Eosinophils Percent Auto 4.8 % (0-4); Hemoglobin 10.9 g/dl (12.0-16.0); Imm Gran Abs Auto 0.03 X10*3/uL (0.00-0.03); Imm Gran Pct Auto 0.3 % (0.0-0.4); Lymphocytes Absolute Auto 1.5 X10*3/uL (1.2-4.9); Lymphocytes Percent Auto 16.2 % (20-40); Mean Corpuscular HGB Conc 31.1 g/dl (31.0-35.0); Mean Corpuscular Hemoglobin 26.1 pg (27.0-33.0); Mean Corpuscular Volume 83.7 fL (80.0-98.0); Monocytes Absolute Auto 0.7 X10*3/uL (0.1-1.2); Monocytes Percent Auto 7.4 % (2-11); Neutrophils Absolute Auto 6.4 x10*3/uL (2.0-8.3); Neutrophils Percent Auto 70.7 % (45-73); Platelet Count 169 X10*3/uL (160-400); Red Blood Count 4.18 X10*6/uL (4.20-5.50); Red Cell Distribution Width 15.7 % (11.0-16.0)
== END 2023-08-17 06:28 | disposition home or self-care (01) ==
LOC: HO.MMNH2L 06:27
PROVIDERS: Visit Provider Family Medicine
DX: I10 Essential (primary) hypertension (principal)
CPT/HCPCS: 36415; 80048; 85025

== ENCOUNTER 2023-08-24 06:36 | Outpatient (REF) | payer OTHER, SELFPAY ==
[2023-08-24 06:24] LABS: MANUAL DIFF FLAG NO
[2023-08-24 07:18] LABS: Basophils Absolute Auto 0.1 X10*3/uL (0.0-0.2); Basophils Percent Auto 0.5 % (0-2); Eosinophils Absolute Auto 0.3 X10*3/uL (0.0-0.4); Eosinophils Percent Auto 2.9 % (0-4); Hematocrit 35.6 % (37.0-47.0); Hemoglobin 11.3 g/dl (12.0-16.0); Imm Gran Abs Auto 0.02 X10*3/uL (0.00-0.03); Imm Gran Pct Auto 0.2 % (0.0-0.4); Lymphocytes Absolute Auto 1.2 X10*3/uL (1.2-4.9); Lymphocytes Percent Auto 11.9 % (20-40); Mean Corpuscular HGB Conc 31.7 g/dl (31.0-35.0); Mean Corpuscular Hemoglobin 26.3 pg (27.0-33.0); Monocytes Absolute Auto 0.4 X10*3/uL (0.1-1.2); Monocytes Percent Auto 4.5 % (2-11); Neutrophils Absolute Auto 7.8 x10*3/uL (2.0-8.3); Platelet Count 148 X10*3/uL (160-400); Red Blood Count 4.29 X10*6/uL (4.20-5.50); Red Cell Distribution Width 15.9 % (11.0-16.0); White Blood Count 9.7 X10*3/uL (4.8-10.8)
[2023-08-24 07:37] LABS: Anion Gap 12 (12-20); Blood Urea Nitrogen 26 mg/dL (9-16); Carbon Dioxide 15 mmol/L (22-29); Chloride 114 mmol/L (96-108); Estimated Glomerular Filt Rate > 60; Glucose Random 80 mg/dL (60-115); Potassium 4.1 mmol/L (3.3-5.1); Sodium 137 mmol/L (135-145)
== END 2023-08-24 06:37 | disposition home or self-care (01) ==
LOC: HO.MMNH2L 06:36
PROVIDERS: Visit Provider Family Medicine
DX: I10 Essential (primary) hypertension (principal)
CPT/HCPCS: 36415; 80048; 85025

== ENCOUNTER 2023-08-31 06:29 | Outpatient (REF) | payer OTHER, SELFPAY ==
[2023-08-31 06:07] LABS: MANUAL DIFF FLAG NO
[2023-08-31 06:54] LABS: Basophils Percent Auto 0.5 % (0-2); Eosinophils Absolute Auto 0.4 X10*3/uL (0.0-0.4); Eosinophils Percent Auto 5.6 % (0-4); Hematocrit 37.6 % (37.0-47.0); Hemoglobin 11.8 g/dl (12.0-16.0); Imm Gran Abs Auto 0.03 X10*3/uL (0.00-0.03); Imm Gran Pct Auto 0.4 % (0.0-0.4); Lymphocytes Absolute Auto 1.8 X10*3/uL (1.2-4.9); Lymphocytes Percent Auto 22.4 % (20-40); Mean Corpuscular HGB Conc 31.4 g/dl (31.0-35.0); Mean Corpuscular Hemoglobin 26.1 pg (27.0-33.0); Mean Corpuscular Volume 83.2 fL (80.0-98.0); Monocytes Absolute Auto 0.6 X10*3/uL (0.1-1.2); Monocytes Percent Auto 7.9 % (2-11); Neutrophils Percent Auto 63.2 % (45-73); Platelet Count 155 X10*3/uL (160-400); Red Blood Count 4.52 X10*6/uL (4.20-5.50); Red Cell Distribution Width 15.7 % (11.0-16.0); White Blood Count 7.9 X10*3/uL (4.8-10.8)
[2023-08-31 07:01] LABS: Anion Gap 11 (12-20); Blood Urea Nitrogen 35 mg/dL (9-16); Calcium 9.7 mg/dL (8.4-10.2); Carbon Dioxide 13 mmol/L (22-29); Chloride 115 mmol/L (96-108); Estimated Glomerular Filt Rate > 60; Glucose Random 84 mg/dL (60-115); Potassium 4.7 mmol/L (3.3-5.1); Sodium 134 mmol/L (135-145)
== END 2023-08-31 06:30 | disposition home or self-care (01) ==
LOC: HO.MMNH2L 06:29
PROVIDERS: Visit Provider Family Medicine
DX: I10 Essential (primary) hypertension (principal)
CPT/HCPCS: 36415; 80048; 85025

== ENCOUNTER 2023-09-07 06:52 | Outpatient (REF) | payer OTHER, SELFPAY ==
[2023-09-07 06:10] LABS: MANUAL DIFF FLAG NO
[2023-09-07 07:18] LABS: Basophils Percent Auto 0.6 % (0-2); Eosinophils Absolute Auto 0.4 X10*3/uL (0.0-0.4); Eosinophils Percent Auto 5.8 % (0-4); Hematocrit 35.5 % (37.0-47.0); Hemoglobin 11.1 g/dl (12.0-16.0); Imm Gran Abs Auto 0.01 X10*3/uL (0.00-0.03); Imm Gran Pct Auto 0.2 % (0.0-0.4); Lymphocytes Absolute Auto 1.5 X10*3/uL (1.2-4.9); Lymphocytes Percent Auto 23.5 % (20-40); Mean Corpuscular HGB Conc 31.3 g/dl (31.0-35.0); Mean Corpuscular Hemoglobin 25.9 pg (27.0-33.0); Mean Corpuscular Volume 82.8 fL (80.0-98.0); Monocytes Absolute Auto 0.4 X10*3/uL (0.1-1.2); Monocytes Percent Auto 6.5 % (2-11); Neutrophils Absolute Auto 4.1 x10*3/uL (2.0-8.3); Neutrophils Percent Auto 63.4 % (45-73); Platelet Count 137 X10*3/uL (160-400); Red Blood Count 4.29 X10*6/uL (4.20-5.50); Red Cell Distribution Width 15.4 % (11.0-16.0); White Blood Count 6.5 X10*3/uL (4.8-10.8)
[2023-09-07 07:29] LABS: Anion Gap 13 (12-20); Blood Urea Nitrogen 26 mg/dL (9-16); Calcium 10.1 mg/dL (8.4-10.2); Carbon Dioxide 17 mmol/L (22-29); Chloride 113 mmol/L (96-108); Estimated Glomerular Filt Rate > 60; Glucose Random 85 mg/dL (60-115); Sodium 139 mmol/L (135-145)
== END 2023-09-07 06:53 | disposition home or self-care (01) ==
LOC: HO.MMNH2L 06:52
PROVIDERS: Visit Provider Family Medicine
DX: I10 Essential (primary) hypertension (principal)
CPT/HCPCS: 36415; 80048; 85025

== ENCOUNTER 2023-09-14 05:52 | Outpatient (REF) | payer OTHER, SELFPAY ==
[2023-09-14 05:47] LABS: MANUAL DIFF FLAG NO
[2023-09-14 06:46] LABS: Basophils Absolute Auto 0.1 X10*3/uL (0.0-0.2); Basophils Percent Auto 0.9 % (0-2); Eosinophils Absolute Auto 0.4 X10*3/uL (0.0-0.4); Eosinophils Percent Auto 5.4 % (0-4); Hematocrit 35.9 % (37.0-47.0); Hemoglobin 11.2 g/dl (12.0-16.0); Imm Gran Abs Auto 0.01 X10*3/uL (0.00-0.03); Imm Gran Pct Auto 0.2 % (0.0-0.4); Lymphocytes Absolute Auto 1.6 X10*3/uL (1.2-4.9); Mean Corpuscular HGB Conc 31.2 g/dl (31.0-35.0); Mean Corpuscular Hemoglobin 25.9 pg (27.0-33.0); Mean Corpuscular Volume 82.9 fL (80.0-98.0); Monocytes Absolute Auto 0.5 X10*3/uL (0.1-1.2); Monocytes Percent Auto 7.3 % (2-11); Neutrophils Absolute Auto 4.1 x10*3/uL (2.0-8.3); Neutrophils Percent Auto 62.2 % (45-73); Platelet Count 136 X10*3/uL (160-400); Red Blood Count 4.33 X10*6/uL (4.20-5.50); Red Cell Distribution Width 15.1 % (11.0-16.0); White Blood Count 6.6 X10*3/uL (4.8-10.8)
[2023-09-14 07:17] LABS: Anion Gap 12 (12-20); Blood Urea Nitrogen 27 mg/dL (9-16); Calcium 10.1 mg/dL (8.4-10.2); Carbon Dioxide 15 mmol/L (22-29); Chloride 114 mmol/L (96-108); Estimated Glomerular Filt Rate > 60; Glucose Random 81 mg/dL (60-115); Potassium 4.2 mmol/L (3.3-5.1); Sodium 137 mmol/L (135-145)
== END 2023-09-14 05:53 | disposition home or self-care (01) ==
LOC: HO.MMNH2L 05:52
PROVIDERS: Visit Provider Family Medicine
DX: I10 Essential (primary) hypertension (principal)
CPT/HCPCS: 36415; 80048; 85025

== ENCOUNTER 2023-09-21 06:05 | Outpatient (REF) | payer OTHER, SELFPAY ==
[2023-09-21 05:53] LABS: MANUAL DIFF FLAG NO
[2023-09-21 06:50] LABS: Basophils Percent Auto 0.2 % (0-2); Eosinophils Absolute Auto 0.3 X10*3/uL (0.0-0.4); Eosinophils Percent Auto 3.5 % (0-4); Hematocrit 38.6 % (37.0-47.0); Hemoglobin 12.3 g/dl (12.0-16.0); Imm Gran Abs Auto 0.01 X10*3/uL (0.00-0.03); Imm Gran Pct Auto 0.1 % (0.0-0.4); Lymphocytes Percent Auto 23.2 % (20-40); Mean Corpuscular HGB Conc 31.9 g/dl (31.0-35.0); Mean Corpuscular Hemoglobin 26.2 pg (27.0-33.0); Mean Corpuscular Volume 82.3 fL (80.0-98.0); Monocytes Absolute Auto 0.7 X10*3/uL (0.1-1.2); Monocytes Percent Auto 8.7 % (2-11); Neutrophils Absolute Auto 5.5 x10*3/uL (2.0-8.3); Neutrophils Percent Auto 64.3 % (45-73); Platelet Count 154 X10*3/uL (160-400); Red Blood Count 4.69 X10*6/uL (4.20-5.50); Red Cell Distribution Width 14.6 % (11.0-16.0); White Blood Count 8.5 X10*3/uL (4.8-10.8)
[2023-09-21 06:51] LABS: Anion Gap 10 (12-20); Blood Urea Nitrogen 27 mg/dL (9-16); Calcium 10.7 mg/dL (8.4-10.2); Carbon Dioxide 16 mmol/L (22-29); Chloride 114 mmol/L (96-108); Estimated Glomerular Filt Rate > 60; Glucose Random 86 mg/dL (60-115); Potassium 4.1 mmol/L (3.3-5.1); Sodium 136 mmol/L (135-145)
== END 2023-09-21 06:06 | disposition home or self-care (01) ==
LOC: HO.MMNH2L 06:05
PROVIDERS: Visit Provider Family Medicine
DX: I10 Essential (primary) hypertension (principal)
CPT/HCPCS: 36415; 80048; 85025

== ENCOUNTER 2023-10-12 07:32 | Outpatient (REF) | payer OTHER, SELFPAY ==
[2023-10-12 06:22] LABS: MANUAL DIFF FLAG NO
[2023-10-12 07:15] LABS: Basophils Percent Auto 0.4 % (0-2); Eosinophils Absolute Auto 0.2 X10*3/uL (0.0-0.4); Eosinophils Percent Auto 2.9 % (0-4); Hematocrit 35.3 % (37.0-47.0); Hemoglobin 11.4 g/dl (12.0-16.0); Imm Gran Abs Auto 0.03 X10*3/uL (0.00-0.03); Imm Gran Pct Auto 0.4 % (0.0-0.4); Lymphocytes Absolute Auto 1.3 X10*3/uL (1.2-4.9); Lymphocytes Percent Auto 15.9 % (20-40); Mean Corpuscular HGB Conc 32.3 g/dl (31.0-35.0); Mean Corpuscular Hemoglobin 26.5 pg (27.0-33.0); Mean Corpuscular Volume 82.1 fL (80.0-98.0); Mean Platelet Volume 13.3 fL (9.4-12.3); Monocytes Absolute Auto 0.6 X10*3/uL (0.1-1.2); Monocytes Percent Auto 7.2 % (2-11); Neutrophils Absolute Auto 6.1 x10*3/uL (2.0-8.3); Neutrophils Percent Auto 73.2 % (45-73); Platelet Count 152 X10*3/uL (160-400); Red Cell Distribution Width 14.5 % (11.0-16.0); White Blood Count 8.4 X10*3/uL (4.8-10.8)
[2023-10-12 07:49] LABS: Anion Gap 12 (12-20); Blood Urea Nitrogen 35 mg/dL (9-16); Calcium 9.5 mg/dL (8.4-10.2); Carbon Dioxide 14 mmol/L (22-29); Chloride 116 mmol/L (96-108); Estimated Glomerular Filt Rate > 60; Glucose Random 144 mg/dL (60-115); Potassium 4.3 mmol/L (3.3-5.1); Sodium 138 mmol/L (135-145)
== END 2023-10-12 07:33 | disposition home or self-care (01) ==
LOC: HO.MMNH2L 07:32
PROVIDERS: Visit Provider Family Medicine
DX: I10 Essential (primary) hypertension (principal)
CPT/HCPCS: 36415; 80048; 85025

== ENCOUNTER 2023-10-19 06:11 | Outpatient (REF) | payer OTHER, SELFPAY ==
[2023-10-19 07:10] LABS: Basophils Percent Auto 0.5 % (0-2); Eosinophils Absolute Auto 0.3 X10*3/uL (0.0-0.4); Hematocrit 32.5 % (37.0-47.0); Hemoglobin 10.3 g/dl (12.0-16.0); Imm Gran Abs Auto 0.02 X10*3/uL (0.00-0.03); Imm Gran Pct Auto 0.3 % (0.0-0.4); Lymphocytes Absolute Auto 1.1 X10*3/uL (1.2-4.9); Lymphocytes Percent Auto 16.7 % (20-40); MANUAL DIFF FLAG SCAN; Mean Corpuscular HGB Conc 31.7 g/dl (31.0-35.0); Mean Corpuscular Hemoglobin 26.3 pg (27.0-33.0); Mean Corpuscular Volume 82.9 fL (80.0-98.0); Monocytes Absolute Auto 0.5 X10*3/uL (0.1-1.2); Monocytes Percent Auto 7.8 % (2-11); Neutrophils Absolute Auto 4.6 x10*3/uL (2.0-8.3); Neutrophils Percent Auto 70.7 % (45-73); PLT CLUMP 1; Red Blood Count 3.92 X10*6/uL (4.20-5.50); Red Cell Distribution Width 14.5 % (11.0-16.0); SCAN SMEAR FLAG 1
[2023-10-19 07:46] LABS: Platelet Count 129 X10*3/uL (160-400)
[2023-10-19 07:47] LABS: SLIDE REVIEW VERIFIED; White Blood Count 6.5 X10*3/uL (4.8-10.8)
[2023-10-19 07:56] LABS: Anion Gap 11 (12-20); Blood Urea Nitrogen 32 mg/dL (9-16); Calcium 9.2 mg/dL (8.4-10.2); Carbon Dioxide 17 mmol/L (22-29); Chloride 113 mmol/L (96-108); Estimated Glomerular Filt Rate > 60; Glucose Random 107 mg/dL (60-115); Potassium 4.5 mmol/L (3.3-5.1); Sodium 136 mmol/L (135-145)
== END 2023-10-19 06:12 | disposition home or self-care (01) ==
LOC: HO.MMNH3L 06:11
PROVIDERS: Visit Provider Family Medicine
DX: I10 Essential (primary) hypertension (principal)
CPT/HCPCS: 36415; 80048; 85025

== ENCOUNTER 2023-10-26 06:33 | Outpatient (REF) | payer OTHER, SELFPAY ==
[2023-10-26 06:49] LABS: Anion Gap 12 (12-20); Blood Urea Nitrogen 29 mg/dL (9-16); Calcium 9.3 mg/dL (8.4-10.2); Carbon Dioxide 14 mmol/L (22-29); Chloride 117 mmol/L (96-108); Estimated Glomerular Filt Rate > 60; Glucose Random 126 mg/dL (60-115); Potassium 4.6 mmol/L (3.3-5.1); Sodium 138 mmol/L (135-145)
[2023-10-26 07:05] LABS: Basophils Percent Auto 0.7 % (0-2); Eosinophils Absolute Auto 0.3 X10*3/uL (0.0-0.4); Eosinophils Percent Auto 4.4 % (0-4); Hematocrit 34.3 % (37.0-47.0); Hemoglobin 10.4 g/dl (12.0-16.0); Imm Gran Abs Auto 0.02 X10*3/uL (0.00-0.03); Imm Gran Pct Auto 0.3 % (0.0-0.4); Lymphocytes Absolute Auto 1.7 X10*3/uL (1.2-4.9); Mean Corpuscular HGB Conc 30.3 g/dl (31.0-35.0); Mean Corpuscular Hemoglobin 26.6 pg (27.0-33.0); Mean Corpuscular Volume 87.7 fL (80.0-98.0); Mean Platelet Volume 13.5 fL (9.4-12.3); Monocytes Absolute Auto 0.6 X10*3/uL (0.1-1.2); Monocytes Percent Auto 10.1 % (2-11); Neutrophils Absolute Auto 3.4 x10*3/uL (2.0-8.3); Neutrophils Percent Auto 56.5 % (45-73); Platelet Count 172 X10*3/uL (160-400); Red Blood Count 3.91 X10*6/uL (4.20-5.50); Red Cell Distribution Width 14.7 % (11.0-16.0); White Blood Count 5.9 X10*3/uL (4.8-10.8)
== END 2023-10-26 06:34 | disposition home or self-care (01) ==
LOC: HO.MMNH3L 06:33
PROVIDERS: Visit Provider Family Medicine
DX: I10 Essential (primary) hypertension (principal); Z93.4 Other artificial openings of gastrointestinal tract status
CPT/HCPCS: 36415; 80048; 85025; 99212

== ENCOUNTER 2023-10-26 08:48 | Outpatient (AMB) | payer OTHER, SELFPAY ==
--- NOTE | 2023-10-26 08:50 | A.OFFVIS_ITS ---
Intake Vital Signs 10/26/23 08:57 Height 4 ft 7 in BP 173/73 H Blood Pressure Location Lt brachial Position Sitting Pulse 63 Intake Visit Reasons: Possible J-tube removal Intake Note: This patient was referred by for an assessment for possible J-tube removal. Pt c/o; Patient had PEG-J and colostomy done at [facility] 5 years ago. 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 Accompanied by: Other Relationship Allergies folic acid [FOLIC ACID] Allergy (Mild, Verified 10/26/23 09:01) AGITATION, visual hallucinations Medication List - Last Reconciled 10/26/23 by Georgi Simeon MD adhesive tape ([employer]) As directed adhesive tape ([employer]) As directed amlodipine 5 mg PO DAILY 90 days apixaban (Eliquis) 5 mg PO BID 90 days ascorbic acid (vitamin C) 500 mg PO DAILY 90 days atorvastatin 40 mg PO BEDTIME 90 days cholecalciferol (vitamin D3) 50 mcg PO DAILY 60 days clotrimazole 1% 1 appl topical BID 4 weeks [colostomy supplies pouch and paste As directed] cyanocobalamin (vitamin B-12) 1,000 mcg PO DAILY 90 days diltiazem HCl 240 mg PO DAILY 90 days Donut pillow As directed enalapril maleate 20 mg PO DAILY 90 days [enteralite infinity bags As directed] ferrous sulfate 325 mg PO BID 90 days fluticasone furoate-vilanterol 100-25 mcg/dose inhalation food supplemt, lactose-reduced (Ensure oral liquid) 1 ea PO TID 30 days [gauze split As directed] hydrochlorothiazide 25 mg PO DAILY loperamide 2 mg PO BID 30 days mirtazapine 7.5 mg PO BEDTIME 90 days ostomy supplies As directed pantoprazole 40 mg PO DAILY sertraline 50 mg PO DAILY temazepam 30 mg PO BEDTIME PRN thiamine HCl (vitamin B1) 100 mg PO DAILY 90 days underpads (Certainty Underpads) As directed vitamin A 10,000 units PO DAILY white petrolatum 41% (Aquaphor Healing) 1 appl topical DAILY PRN 30 days zinc sulfate 220 mg PO DAILY HPI Possible J-tube removal HPI Details She is here for follow-up for questions regarding her jejunostomy tube. 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 She had feeding jejunostomy placed at the same time. These were all done in [facility]. She is still in a fdc. However, according to granddaughter who is with her, she has not been needing the jejunostomy tube anymore so she was sent here for removal. She is able to take adequate oral intake. Her stoma has been functioning well. [facility] Medical History Jejunostomy present Anemia Jaundice Afib Chronic GERD Mild recurrent major depression Jejunostomy tube leak Colostomy in place Malnutrition Localized swelling of both lower legs Pneumonia Hospital discharge follow-up B12 deficiency Pure hypercholesterolemia Essential hypertension Surgical History H/O ileostomy Family History Mother Diabetes Father No problems noted. Social History Housing: Apartment Alcohol intake: former Patient Tobacco Use Status: Current someday Tobacco user Tobacco use type: Cigarette Cigarettes Per Day: 1 e-Cigarette/Vaping Use: Never Used Second Hand Smoke Exposure: No service: No Current occupational status: retired Cognitive needs: Yes Hearing needs: No Vision needs: No Review of Systems Const Denies chills and Denies fever(s) Card Denies chest pain, Denies dyspnea and Denies dyspnea on exertion Resp Denies cough, Denies dyspnea and Denies dyspnea on exertion GI Denies hematochezia and Denies change in bowel habits Denies hematuria Musc Reports abnormal gait, Denies back pain and Denies limited range of motion Neuro Reports abnormal gait, Denies focal weakness and Denies convulsions Psych Denies depression and Denies mood swings Physical Exam Const Other: On wheelchair General: comfortable and no acute distress Resp Effort & Inspection: normal respiratory effort Cardio Rate: regular rate GI Other: Stoma on the right side, jejunostomy tube on the left Palpation (GI): Soft to palpation, not firm, nontender and no guarding Assessment & Plan Assessment & Plan (1) Jejunostomy present: Code(s): Z93.4 - Other artificial openings of gastrointestinal tract status Plan: She is here to have the jejunostomy tube removed. She apparently has been able to take oral intake adequately. Furthermore, she says the jejunostomy tube bothers her all the time I desufflated the balloon of the jejunostomy tube. I pulled this out without difficulty. She tolerated procedure well. Dry dressings were applied. She can continue to have dry dressings on the jejunostomy site as this will continue to drain until this completely closes She can follow up on a p.r.n. basis. Her granddaughter was with her during the visit. Coding Level of Care Code Est Pt Level 3 (52615) Diagnoses Jejunostomy present Z93.4
[2023-10-26 08:57] VITALS: BP 173/73; PULSE 63
== END 2023-10-26 09:07 | disposition home or self-care (01) ==
PROVIDERS: PCP Internal Medicine; Referring Provider Internal Medicine; Visit Provider Surgery
DX: Z93.4 Other artificial openings of gastrointestinal tract status (principal)
CPT/HCPCS: 99213

== ENCOUNTER 2023-10-28 06:01 | Outpatient (REF) | payer OTHER, SELFPAY ==
[2023-10-28 06:39] LABS: Basophils Percent Auto 0.5 % (0-2); Eosinophils Absolute Auto 0.3 X10*3/uL (0.0-0.4); Eosinophils Percent Auto 4.1 % (0-4); Hematocrit 36.8 % (37.0-47.0); Hemoglobin 11.7 g/dl (12.0-16.0); Imm Gran Abs Auto 0.02 X10*3/uL (0.00-0.03); Imm Gran Pct Auto 0.3 % (0.0-0.4); Lymphocytes Absolute Auto 1.5 X10*3/uL (1.2-4.9); Lymphocytes Percent Auto 22.4 % (20-40); Mean Corpuscular HGB Conc 31.8 g/dl (31.0-35.0); Mean Corpuscular Volume 81.8 fL (80.0-98.0); Mean Platelet Volume 13.3 fL (9.4-12.3); Monocytes Absolute Auto 0.4 X10*3/uL (0.1-1.2); Monocytes Percent Auto 5.9 % (2-11); Neutrophils Absolute Auto 4.4 x10*3/uL (2.0-8.3); Neutrophils Percent Auto 66.8 % (45-73); Red Cell Distribution Width 14.4 % (11.0-16.0)
[2023-10-28 06:40] LABS: Platelet Count 180 X10*3/uL (160-400); White Blood Count 6.6 X10*3/uL (4.8-10.8)
[2023-10-28 06:43] LABS: Anion Gap 12 (12-20); Blood Urea Nitrogen 27 mg/dL (9-16); Carbon Dioxide 14 mmol/L (22-29); Chloride 115 mmol/L (96-108); Estimated Glomerular Filt Rate 53; Glucose Random 113 mg/dL (60-115); Potassium 4.4 mmol/L (3.3-5.1); Sodium 137 mmol/L (135-145)
== END 2023-10-28 06:02 | disposition home or self-care (01) ==
LOC: HO.MMNH3L 06:01
PROVIDERS: Visit Provider Family Medicine
DX: D64.9 Anemia, unspecified (principal); Z93.1 Gastrostomy status
CPT/HCPCS: 36415; 80048; 85025

== ENCOUNTER 2023-11-02 06:11 | Outpatient (REF) | payer OTHER, SELFPAY ==
[2023-11-02 06:05] LABS: MANUAL DIFF FLAG NO
[2023-11-02 07:05] LABS: Basophils Percent Auto 0.5 % (0-2); Eosinophils Absolute Auto 0.3 X10*3/uL (0.0-0.4); Eosinophils Percent Auto 4.1 % (0-4); Hematocrit 36.4 % (37.0-47.0); Hemoglobin 11.3 g/dl (12.0-16.0); Imm Gran Abs Auto 0.02 X10*3/uL (0.00-0.03); Imm Gran Pct Auto 0.3 % (0.0-0.4); Lymphocytes Absolute Auto 1.8 X10*3/uL (1.2-4.9); Lymphocytes Percent Auto 23.9 % (20-40); Mean Corpuscular Hemoglobin 25.7 pg (27.0-33.0); Mean Corpuscular Volume 82.9 fL (80.0-98.0); Mean Platelet Volume 12.6 fL (9.4-12.3); Monocytes Absolute Auto 0.6 X10*3/uL (0.1-1.2); Monocytes Percent Auto 7.8 % (2-11); Neutrophils Absolute Auto 4.6 x10*3/uL (2.0-8.3); Neutrophils Percent Auto 63.4 % (45-73); Platelet Count 187 X10*3/uL (160-400); Red Blood Count 4.39 X10*6/uL (4.20-5.50); Red Cell Distribution Width 14.4 % (11.0-16.0); White Blood Count 7.3 X10*3/uL (4.8-10.8)
[2023-11-02 07:26] LABS: Anion Gap 11 (12-20); Blood Urea Nitrogen 25 mg/dL (9-16); Calcium 9.7 mg/dL (8.4-10.2); Carbon Dioxide 15 mmol/L (22-29); Chloride 117 mmol/L (96-108); Estimated Glomerular Filt Rate 50; Glucose Random 87 mg/dL (60-115); Potassium 4.5 mmol/L (3.3-5.1); Sodium 138 mmol/L (135-145)
== END 2023-11-02 06:12 | disposition home or self-care (01) ==
LOC: HO.MMNH3L 06:11
PROVIDERS: Visit Provider Family Medicine
DX: I10 Essential (primary) hypertension (principal)
CPT/HCPCS: 36415; 80048; 85025

== ENCOUNTER 2023-11-09 05:47 | Outpatient (REF) | payer OTHER, SELFPAY ==
[2023-11-09 05:49] LABS: Imm Gran Abs Auto 0.02 X10*3/uL (0.00-0.03); Imm Gran Pct Auto 0.3 % (0.0-0.4); Lymphocytes Absolute Auto 1.6 X10*3/uL (1.2-4.9); Lymphocytes Percent Auto 21.7 % (20-40); Mean Platelet Volume 13.3 fL (9.4-12.3); Neutrophils Absolute Auto 4.9 x10*3/uL (2.0-8.3); PLT ABN DIST 1; SCAN SMEAR FLAG 1
[2023-11-09 05:52] LABS: Basophils Absolute Auto 0.1 X10*3/uL (0.0-0.2); Basophils Percent Auto 0.7 % (0-2); Eosinophils Absolute Auto 0.3 X10*3/uL (0.0-0.4); Eosinophils Percent Auto 3.7 % (0-4); Hemoglobin 11.5 g/dl (12.0-16.0); MANUAL DIFF FLAG NO; Mean Corpuscular HGB Conc 31.1 g/dl (31.0-35.0); Mean Corpuscular Hemoglobin 25.8 pg (27.0-33.0); Mean Corpuscular Volume 83.1 fL (80.0-98.0); Monocytes Absolute Auto 0.5 X10*3/uL (0.1-1.2); Monocytes Percent Auto 7.1 % (2-11); Neutrophils Percent Auto 66.5 % (45-73); Platelet Count 146 X10*3/uL (160-400); Red Blood Count 4.45 X10*6/uL (4.20-5.50); Red Cell Distribution Width 14.5 % (11.0-16.0); White Blood Count 7.3 X10*3/uL (4.8-10.8)
[2023-11-09 06:20] LABS: Anion Gap 11 (12-20); Blood Urea Nitrogen 26 mg/dL (9-16); Calcium 9.7 mg/dL (8.4-10.2); Carbon Dioxide 13 mmol/L (22-29); Chloride 120 mmol/L (96-108); Estimated Glomerular Filt Rate 58; Glucose Random 96 mg/dL (60-115); Sodium 140 mmol/L (135-145)
== END 2023-11-09 05:48 | disposition home or self-care (01) ==
LOC: HO.MMNH3L 05:47
PROVIDERS: Visit Provider Family Medicine
DX: I10 Essential (primary) hypertension (principal)
CPT/HCPCS: 36415; 80048; 85025

== ENCOUNTER 2023-11-16 06:05 | Outpatient (REF) | payer OTHER, SELFPAY ==
[2023-11-16 05:45] LABS: MANUAL DIFF FLAG NO
[2023-11-16 06:27] LABS: Basophils Percent Auto 0.4 % (0-2); Eosinophils Absolute Auto 0.4 X10*3/uL (0.0-0.4); Eosinophils Percent Auto 4.5 % (0-4); Hematocrit 34.5 % (37.0-47.0); Hemoglobin 10.7 g/dl (12.0-16.0); Imm Gran Abs Auto 0.03 X10*3/uL (0.00-0.03); Imm Gran Pct Auto 0.4 % (0.0-0.4); Lymphocytes Absolute Auto 1.8 X10*3/uL (1.2-4.9); Lymphocytes Percent Auto 22.1 % (20-40); Mean Corpuscular Hemoglobin 26.2 pg (27.0-33.0); Mean Corpuscular Volume 84.6 fL (80.0-98.0); Mean Platelet Volume 13.4 fL (9.4-12.3); Monocytes Absolute Auto 0.5 X10*3/uL (0.1-1.2); Monocytes Percent Auto 6.1 % (2-11); Neutrophils Absolute Auto 5.4 x10*3/uL (2.0-8.3); Neutrophils Percent Auto 66.5 % (45-73); Platelet Count 131 X10*3/uL (160-400); Red Blood Count 4.08 X10*6/uL (4.20-5.50); Red Cell Distribution Width 15.1 % (11.0-16.0)
[2023-11-16 06:44] LABS: Anion Gap 11 (12-20); Blood Urea Nitrogen 13 mg/dL (9-16); Calcium 9.4 mg/dL (8.4-10.2); Carbon Dioxide 13 mmol/L (22-29); Chloride 121 mmol/L (96-108); Estimated Glomerular Filt Rate > 60; Glucose Random 84 mg/dL (60-115); Sodium 141 mmol/L (135-145)
== END 2023-11-16 06:06 | disposition home or self-care (01) ==
LOC: HO.MMNH3L 06:05
PROVIDERS: Visit Provider Family Medicine
DX: I10 Essential (primary) hypertension (principal)
CPT/HCPCS: 36415; 80048; 85025

== ENCOUNTER 2023-11-23 06:22 | Outpatient (REF) | payer OTHER, SELFPAY ==
[2023-11-23 05:48] LABS: MANUAL DIFF FLAG NO
[2023-11-23 06:26] LABS: Basophils Percent Auto 0.5 % (0-2); Eosinophils Absolute Auto 0.5 X10*3/uL (0.0-0.4); Eosinophils Percent Auto 6.2 % (0-4); Hematocrit 31.4 % (37.0-47.0); Hemoglobin 9.7 g/dl (12.0-16.0); Imm Gran Abs Auto 0.03 X10*3/uL (0.00-0.03); Imm Gran Pct Auto 0.4 % (0.0-0.4); Lymphocytes Percent Auto 27.4 % (20-40); Mean Corpuscular HGB Conc 30.9 g/dl (31.0-35.0); Mean Corpuscular Hemoglobin 26.6 pg (27.0-33.0); Mean Corpuscular Volume 86.3 fL (80.0-98.0); Mean Platelet Volume 12.9 fL (9.4-12.3); Monocytes Absolute Auto 0.4 X10*3/uL (0.1-1.2); Monocytes Percent Auto 5.9 % (2-11); Neutrophils Absolute Auto 4.3 x10*3/uL (2.0-8.3); Neutrophils Percent Auto 59.6 % (45-73); Platelet Count 157 X10*3/uL (160-400); Red Blood Count 3.64 X10*6/uL (4.20-5.50); Red Cell Distribution Width 16.2 % (11.0-16.0); White Blood Count 7.3 X10*3/uL (4.8-10.8)
[2023-11-23 06:40] LABS: Anion Gap 12 (12-20); Blood Urea Nitrogen 16 mg/dL (9-16); Calcium 9.3 mg/dL (8.4-10.2); Carbon Dioxide 12 mmol/L (22-29); Chloride 119 mmol/L (96-108); Estimated Glomerular Filt Rate 51; Glucose Random 89 mg/dL (60-115); Potassium 3.8 mmol/L (3.3-5.1); Sodium 139 mmol/L (135-145)
== END 2023-11-23 06:23 | disposition home or self-care (01) ==
LOC: HO.MMNH3L 06:22
PROVIDERS: Visit Provider Family Medicine
DX: I10 Essential (primary) hypertension (principal)
CPT/HCPCS: 36415; 80048; 85025

== ENCOUNTER 2023-11-30 06:31 | Outpatient (REF) | payer OTHER, SELFPAY ==
[2023-11-30 06:20] LABS: MANUAL DIFF FLAG NO
[2023-11-30 07:11] LABS: Basophils Percent Auto 0.6 % (0-2); Eosinophils Absolute Auto 0.4 X10*3/uL (0.0-0.4); Eosinophils Percent Auto 5.5 % (0-4); Hematocrit 38.9 % (37.0-47.0); Hemoglobin 11.4 g/dl (12.0-16.0); Imm Gran Abs Auto 0.02 X10*3/uL (0.00-0.03); Imm Gran Pct Auto 0.3 % (0.0-0.4); Lymphocytes Percent Auto 27.1 % (20-40); Mean Corpuscular HGB Conc 29.3 g/dl (31.0-35.0); Mean Corpuscular Volume 92.2 fL (80.0-98.0); Mean Platelet Volume 12.6 fL (9.4-12.3); Monocytes Absolute Auto 0.6 X10*3/uL (0.1-1.2); Monocytes Percent Auto 8.2 % (2-11); Neutrophils Absolute Auto 4.2 x10*3/uL (2.0-8.3); Neutrophils Percent Auto 58.3 % (45-73); Platelet Count 180 X10*3/uL (160-400); Red Blood Count 4.22 X10*6/uL (4.20-5.50); Red Cell Distribution Width 16.6 % (11.0-16.0); White Blood Count 7.2 X10*3/uL (4.8-10.8)
== END 2023-11-30 06:32 | disposition home or self-care (01) ==
LOC: HO.MMNH3L 06:31
PROVIDERS: Visit Provider Family Medicine
DX: I10 Essential (primary) hypertension (principal)
CPT/HCPCS: 36415; 80048; 85025

== ENCOUNTER 2023-12-07 06:50 | Outpatient (REF) | payer OTHER, SELFPAY ==
[2023-12-07 06:07] LABS: MANUAL DIFF FLAG NO
[2023-12-07 06:59] LABS: Basophils Absolute Auto 0.1 X10*3/uL (0.0-0.2); Basophils Percent Auto 0.6 % (0-2); Eosinophils Absolute Auto 0.3 X10*3/uL (0.0-0.4); Hemoglobin 10.6 g/dl (12.0-16.0); Imm Gran Abs Auto 0.02 X10*3/uL (0.00-0.03); Imm Gran Pct Auto 0.2 % (0.0-0.4); Lymphocytes Absolute Auto 1.5 X10*3/uL (1.2-4.9); Lymphocytes Percent Auto 18.8 % (20-40); Mean Corpuscular HGB Conc 31.2 g/dl (31.0-35.0); Mean Corpuscular Hemoglobin 27.4 pg (27.0-33.0); Mean Corpuscular Volume 87.9 fL (80.0-98.0); Mean Platelet Volume 12.7 fL (9.4-12.3); Monocytes Absolute Auto 0.5 X10*3/uL (0.1-1.2); Monocytes Percent Auto 6.6 % (2-11); Neutrophils Absolute Auto 5.7 x10*3/uL (2.0-8.3); Neutrophils Percent Auto 69.8 % (45-73); Platelet Count 162 X10*3/uL (160-400); Red Blood Count 3.87 X10*6/uL (4.20-5.50); Red Cell Distribution Width 16.2 % (11.0-16.0); White Blood Count 8.2 X10*3/uL (4.8-10.8)
[2023-12-07 07:28] LABS: Anion Gap 13 (12-20); Blood Urea Nitrogen 29 mg/dL (9-16); Calcium 9.5 mg/dL (8.4-10.2); Carbon Dioxide 14 mmol/L (22-29); Chloride 118 mmol/L (96-108); Estimated Glomerular Filt Rate 54; Glucose Random 91 mg/dL (60-115); Potassium 4.4 mmol/L (3.3-5.1); Sodium 141 mmol/L (135-145)
== END 2023-12-07 06:51 | disposition home or self-care (01) ==
LOC: HO.MMNH3L 06:50
PROVIDERS: Visit Provider Family Medicine
DX: I10 Essential (primary) hypertension (principal)
CPT/HCPCS: 36415; 80048; 85025

== ENCOUNTER 2023-12-14 05:56 | Outpatient (REF) | payer OTHER, SELFPAY ==
[2023-12-14 05:46] LABS: MANUAL DIFF FLAG NO
[2023-12-14 06:13] LABS: Basophils Absolute Auto 0.1 X10*3/uL (0.0-0.2); Basophils Percent Auto 0.9 % (0-2); Eosinophils Absolute Auto 0.3 X10*3/uL (0.0-0.4); Hematocrit 33.7 % (37.0-47.0); Hemoglobin 10.3 g/dl (12.0-16.0); Imm Gran Abs Auto 0.01 X10*3/uL (0.00-0.03); Imm Gran Pct Auto 0.2 % (0.0-0.4); Lymphocytes Absolute Auto 1.8 X10*3/uL (1.2-4.9); Lymphocytes Percent Auto 27.4 % (20-40); Mean Corpuscular HGB Conc 30.6 g/dl (31.0-35.0); Mean Corpuscular Hemoglobin 27.2 pg (27.0-33.0); Mean Corpuscular Volume 88.9 fL (80.0-98.0); Mean Platelet Volume 12.8 fL (9.4-12.3); Monocytes Absolute Auto 0.5 X10*3/uL (0.1-1.2); Monocytes Percent Auto 7.6 % (2-11); Neutrophils Absolute Auto 3.8 x10*3/uL (2.0-8.3); Neutrophils Percent Auto 58.9 % (45-73); Platelet Count 153 X10*3/uL (160-400); Red Blood Count 3.79 X10*6/uL (4.20-5.50); Red Cell Distribution Width 15.7 % (11.0-16.0); White Blood Count 6.4 X10*3/uL (4.8-10.8)
[2023-12-14 06:54] LABS: Anion Gap 14 (12-20); Blood Urea Nitrogen 18 mg/dL (9-16); Calcium 9.3 mg/dL (8.4-10.2); Carbon Dioxide 11 mmol/L (22-29); Chloride 119 mmol/L (96-108); Estimated Glomerular Filt Rate 45; Glucose Random 87 mg/dL (60-115); Potassium 4.8 mmol/L (3.3-5.1); Sodium 139 mmol/L (135-145)
== END 2023-12-14 05:57 | disposition home or self-care (01) ==
LOC: HO.MMNH3L 05:56
PROVIDERS: Visit Provider Family Medicine
DX: I10 Essential (primary) hypertension (principal)
CPT/HCPCS: 36415; 80048; 85025

== ENCOUNTER 2023-12-22 05:52 | Outpatient (REF) | payer OTHER, SELFPAY ==
[2023-12-22 05:51] LABS: MANUAL DIFF FLAG NO
[2023-12-22 06:29] LABS: Basophils Percent Auto 0.5 % (0-2); Eosinophils Absolute Auto 0.4 X10*3/uL (0.0-0.4); Eosinophils Percent Auto 4.8 % (0-4); Hematocrit 35.4 % (37.0-47.0); Hemoglobin 11.2 g/dl (12.0-16.0); Imm Gran Abs Auto 0.02 X10*3/uL (0.00-0.03); Imm Gran Pct Auto 0.3 % (0.0-0.4); Lymphocytes Absolute Auto 1.8 X10*3/uL (1.2-4.9); Lymphocytes Percent Auto 24.8 % (20-40); Mean Corpuscular HGB Conc 31.6 g/dl (31.0-35.0); Mean Corpuscular Hemoglobin 27.5 pg (27.0-33.0); Mean Corpuscular Volume 86.8 fL (80.0-98.0); Mean Platelet Volume 12.2 fL (9.4-12.3); Monocytes Absolute Auto 0.5 X10*3/uL (0.1-1.2); Monocytes Percent Auto 7.1 % (2-11); Neutrophils Absolute Auto 4.6 x10*3/uL (2.0-8.3); Neutrophils Percent Auto 62.5 % (45-73); Platelet Count 158 X10*3/uL (160-400); Red Blood Count 4.08 X10*6/uL (4.20-5.50); Red Cell Distribution Width 15.1 % (11.0-16.0); White Blood Count 7.3 X10*3/uL (4.8-10.8)
[2023-12-22 07:18] LABS: Anion Gap 13 (12-20); Blood Urea Nitrogen 19 mg/dL (9-16); Calcium 9.4 mg/dL (8.4-10.2); Carbon Dioxide 13 mmol/L (22-29); Chloride 119 mmol/L (96-108); Estimated Glomerular Filt Rate 46; Glucose Random 89 mg/dL (60-115); Potassium 4.2 mmol/L (3.3-5.1); Sodium 141 mmol/L (135-145)
== END 2023-12-22 05:53 | disposition home or self-care (01) ==
LOC: HO.MMNH3L 05:52
PROVIDERS: Visit Provider Family Medicine
DX: I10 Essential (primary) hypertension (principal)
CPT/HCPCS: 36415; 80048; 85025

== ENCOUNTER 2023-12-28 05:56 | Outpatient (REF) | payer OTHER, SELFPAY ==
[2023-12-28 05:47] LABS: MANUAL DIFF FLAG NO
[2023-12-28 06:55] LABS: Basophils Percent Auto 0.6 % (0-2); Eosinophils Absolute Auto 0.3 X10*3/uL (0.0-0.4); Hematocrit 33.8 % (37.0-47.0); Hemoglobin 10.5 g/dl (12.0-16.0); Imm Gran Abs Auto 0.02 X10*3/uL (0.00-0.03); Imm Gran Pct Auto 0.3 % (0.0-0.4); Lymphocytes Absolute Auto 1.4 X10*3/uL (1.2-4.9); Lymphocytes Percent Auto 19.8 % (20-40); Mean Corpuscular HGB Conc 31.1 g/dl (31.0-35.0); Mean Corpuscular Hemoglobin 27.6 pg (27.0-33.0); Mean Corpuscular Volume 88.7 fL (80.0-98.0); Mean Platelet Volume 12.9 fL (9.4-12.3); Monocytes Absolute Auto 0.6 X10*3/uL (0.1-1.2); Monocytes Percent Auto 8.8 % (2-11); Neutrophils Absolute Auto 4.7 x10*3/uL (2.0-8.3); Neutrophils Percent Auto 66.5 % (45-73); Platelet Count 157 X10*3/uL (160-400); Red Blood Count 3.81 X10*6/uL (4.20-5.50); Red Cell Distribution Width 14.8 % (11.0-16.0); White Blood Count 7.1 X10*3/uL (4.8-10.8)
[2023-12-28 06:57] LABS: Anion Gap 10 (12-20); Blood Urea Nitrogen 21 mg/dL (9-16); Calcium 9.3 mg/dL (8.4-10.2); Carbon Dioxide 13 mmol/L (22-29); Chloride 122 mmol/L (96-108); Estimated Glomerular Filt Rate 38; Glucose Random 108 mg/dL (60-115); Potassium 4.4 mmol/L (3.3-5.1); Sodium 141 mmol/L (135-145)
== END 2023-12-28 05:57 | disposition home or self-care (01) ==
LOC: HO.MMNH3L 05:56
PROVIDERS: Visit Provider Family Medicine
DX: I10 Essential (primary) hypertension (principal)
CPT/HCPCS: 36415; 80048; 85025

== ENCOUNTER 2024-01-04 05:59 | Outpatient (REF) | payer OTHER, SELFPAY ==
[2024-01-04 05:41] LABS: MANUAL DIFF FLAG NO
[2024-01-04 05:58] LABS: Basophils Percent Auto 0.6 % (0-2); Eosinophils Absolute Auto 0.3 X10*3/uL (0.0-0.4); Eosinophils Percent Auto 4.2 % (0-4); Hematocrit 35.7 % (37.0-47.0); Imm Gran Abs Auto 0.01 X10*3/uL (0.00-0.03); Imm Gran Pct Auto 0.1 % (0.0-0.4); Lymphocytes Absolute Auto 1.5 X10*3/uL (1.2-4.9); Lymphocytes Percent Auto 22.4 % (20-40); Mean Corpuscular HGB Conc 30.8 g/dl (31.0-35.0); Mean Corpuscular Hemoglobin 26.8 pg (27.0-33.0); Mean Corpuscular Volume 87.1 fL (80.0-98.0); Mean Platelet Volume 12.4 fL (9.4-12.3); Monocytes Absolute Auto 0.6 X10*3/uL (0.1-1.2); Monocytes Percent Auto 8.3 % (2-11); Neutrophils Absolute Auto 4.4 x10*3/uL (2.0-8.3); Neutrophils Percent Auto 64.4 % (45-73); Platelet Count 124 X10*3/uL (160-400); Red Cell Distribution Width 14.6 % (11.0-16.0); White Blood Count 6.9 X10*3/uL (4.8-10.8)
[2024-01-04 06:26] LABS: Anion Gap 14 (12-20); Blood Urea Nitrogen 19 mg/dL (9-16); Calcium 9.7 mg/dL (8.4-10.2); Carbon Dioxide 11 mmol/L (22-29); Chloride 119 mmol/L (96-108); Estimated Glomerular Filt Rate 53; Glucose Random 94 mg/dL (60-115); Potassium 4.6 mmol/L (3.3-5.1); Sodium 139 mmol/L (135-145)
== END 2024-01-04 06:00 | disposition home or self-care (01) ==
LOC: HO.MMNH3L 05:59
PROVIDERS: Visit Provider Hospitalist
DX: I10 Essential (primary) hypertension (principal)
CPT/HCPCS: 36415; 80048; 85025

== ENCOUNTER 2024-01-11 06:15 | Outpatient (REF) | payer OTHER, SELFPAY ==
[2024-01-11 05:47] LABS: MANUAL DIFF FLAG NO
[2024-01-11 06:19] LABS: Basophils Absolute Auto 0.1 X10*3/uL (0.0-0.2); Basophils Percent Auto 0.7 % (0-2); Eosinophils Absolute Auto 0.3 X10*3/uL (0.0-0.4); Eosinophils Percent Auto 4.3 % (0-4); Hematocrit 37.4 % (37.0-47.0); Hemoglobin 11.7 g/dl (12.0-16.0); Imm Gran Abs Auto 0.03 X10*3/uL (0.00-0.03); Imm Gran Pct Auto 0.4 % (0.0-0.4); Lymphocytes Absolute Auto 1.6 X10*3/uL (1.2-4.9); Lymphocytes Percent Auto 21.5 % (20-40); Mean Corpuscular HGB Conc 31.3 g/dl (31.0-35.0); Mean Corpuscular Hemoglobin 27.3 pg (27.0-33.0); Mean Corpuscular Volume 87.4 fL (80.0-98.0); Mean Platelet Volume 12.8 fL (9.4-12.3); Monocytes Absolute Auto 0.6 X10*3/uL (0.1-1.2); Monocytes Percent Auto 8.1 % (2-11); Neutrophils Absolute Auto 4.9 x10*3/uL (2.0-8.3); Platelet Count 151 X10*3/uL (160-400); Red Blood Count 4.28 X10*6/uL (4.20-5.50); Red Cell Distribution Width 14.2 % (11.0-16.0); White Blood Count 7.5 X10*3/uL (4.8-10.8)
[2024-01-11 06:42] LABS: Anion Gap 14 (12-20); Blood Urea Nitrogen 28 mg/dL (9-16); Calcium 10.2 mg/dL (8.4-10.2); Carbon Dioxide 12 mmol/L (22-29); Chloride 117 mmol/L (96-108); Estimated Glomerular Filt Rate 42; Glucose Random 97 mg/dL (60-115); Potassium 4.7 mmol/L (3.3-5.1); Sodium 138 mmol/L (135-145)
== END 2024-01-11 06:16 | disposition home or self-care (01) ==
LOC: HO.MMNH3L 06:15
PROVIDERS: Visit Provider Hospitalist
DX: I10 Essential (primary) hypertension (principal)
CPT/HCPCS: 36415; 80048; 85025

== ENCOUNTER 2024-01-18 05:45 | Outpatient (REF) | payer OTHER, SELFPAY ==
[2024-01-18 05:33] LABS: MANUAL DIFF FLAG NO
[2024-01-18 05:48] LABS: Basophils Percent Auto 0.6 % (0-2); Eosinophils Absolute Auto 0.3 X10*3/uL (0.0-0.4); Eosinophils Percent Auto 5.3 % (0-4); Hematocrit 33.8 % (37.0-47.0); Hemoglobin 10.7 g/dl (12.0-16.0); Imm Gran Abs Auto 0.02 X10*3/uL (0.00-0.03); Imm Gran Pct Auto 0.3 % (0.0-0.4); Lymphocytes Absolute Auto 1.4 X10*3/uL (1.2-4.9); Lymphocytes Percent Auto 23.3 % (20-40); Mean Corpuscular HGB Conc 31.7 g/dl (31.0-35.0); Mean Corpuscular Hemoglobin 27.3 pg (27.0-33.0); Mean Corpuscular Volume 86.2 fL (80.0-98.0); Mean Platelet Volume 12.6 fL (9.4-12.3); Monocytes Absolute Auto 0.4 X10*3/uL (0.1-1.2); Monocytes Percent Auto 6.8 % (2-11); Neutrophils Absolute Auto 3.9 x10*3/uL (2.0-8.3); Neutrophils Percent Auto 63.7 % (45-73); Platelet Count 142 X10*3/uL (160-400); Red Blood Count 3.92 X10*6/uL (4.20-5.50); Red Cell Distribution Width 13.9 % (11.0-16.0); White Blood Count 6.2 X10*3/uL (4.8-10.8)
[2024-01-18 06:15] LABS: Anion Gap 14 (12-20); Blood Urea Nitrogen 19 mg/dL (9-16); Calcium 9.5 mg/dL (8.4-10.2); Carbon Dioxide 14 mmol/L (22-29); Chloride 117 mmol/L (96-108); Estimated Glomerular Filt Rate 49; Glucose Random 88 mg/dL (60-115); Potassium 4.3 mmol/L (3.3-5.1); Sodium 141 mmol/L (135-145)
== END 2024-01-18 05:46 | disposition home or self-care (01) ==
LOC: HO.MMNH3L 05:45
PROVIDERS: Visit Provider Family Medicine
DX: I10 Essential (primary) hypertension (principal)
CPT/HCPCS: 36415; 80048; 85025

== ENCOUNTER 2024-01-25 07:11 | Outpatient (REF) | payer OTHER, SELFPAY ==
[2024-01-25 06:23] LABS: MANUAL DIFF FLAG NO
[2024-01-25 07:19] LABS: Basophils Absolute Auto 0.1 X10*3/uL (0.0-0.2); Basophils Percent Auto 0.7 % (0-2); Eosinophils Absolute Auto 0.3 X10*3/uL (0.0-0.4); Eosinophils Percent Auto 3.4 % (0-4); Hemoglobin 10.9 g/dl (12.0-16.0); Imm Gran Abs Auto 0.02 X10*3/uL (0.00-0.03); Imm Gran Pct Auto 0.3 % (0.0-0.4); Lymphocytes Absolute Auto 1.9 X10*3/uL (1.2-4.9); Lymphocytes Percent Auto 24.4 % (20-40); Mean Corpuscular HGB Conc 31.1 g/dl (31.0-35.0); Mean Corpuscular Hemoglobin 27.7 pg (27.0-33.0); Mean Corpuscular Volume 89.1 fL (80.0-98.0); Mean Platelet Volume 12.9 fL (9.4-12.3); Monocytes Absolute Auto 0.5 X10*3/uL (0.1-1.2); Monocytes Percent Auto 6.8 % (2-11); Neutrophils Absolute Auto 4.9 x10*3/uL (2.0-8.3); Neutrophils Percent Auto 64.4 % (45-73); Platelet Count 153 X10*3/uL (160-400); Red Blood Count 3.93 X10*6/uL (4.20-5.50); Red Cell Distribution Width 13.7 % (11.0-16.0); White Blood Count 7.6 X10*3/uL (4.8-10.8)
[2024-01-25 07:38] LABS: Anion Gap 13 (12-20); Blood Urea Nitrogen 26 mg/dL (9-16); Calcium 9.8 mg/dL (8.4-10.2); Carbon Dioxide 12 mmol/L (22-29); Chloride 118 mmol/L (96-108); Estimated Glomerular Filt Rate 33; Glucose Random 89 mg/dL (60-115); Potassium 4.5 mmol/L (3.3-5.1); Sodium 138 mmol/L (135-145)
== END 2024-01-25 07:12 | disposition home or self-care (01) ==
LOC: HO.MMNH3L 07:11
PROVIDERS: Visit Provider Family Medicine
DX: I10 Essential (primary) hypertension (principal)
CPT/HCPCS: 36415; 80048; 85025

== ENCOUNTER 2024-02-01 05:51 | Outpatient (REF) | payer OTHER, SELFPAY ==
[2024-02-01 05:32] LABS: MANUAL DIFF FLAG NO
[2024-02-01 06:05] LABS: Basophils Percent Auto 0.4 % (0-2); Eosinophils Absolute Auto 0.3 X10*3/uL (0.0-0.4); Eosinophils Percent Auto 3.8 % (0-4); Hematocrit 32.2 % (37.0-47.0); Imm Gran Abs Auto 0.02 X10*3/uL (0.00-0.03); Imm Gran Pct Auto 0.3 % (0.0-0.4); Lymphocytes Percent Auto 28.9 % (20-40); Mean Corpuscular HGB Conc 31.1 g/dl (31.0-35.0); Mean Corpuscular Hemoglobin 27.7 pg (27.0-33.0); Mean Corpuscular Volume 89.2 fL (80.0-98.0); Mean Platelet Volume 12.9 fL (9.4-12.3); Monocytes Absolute Auto 0.6 X10*3/uL (0.1-1.2); Monocytes Percent Auto 8.9 % (2-11); Neutrophils Percent Auto 57.7 % (45-73); Platelet Count 143 X10*3/uL (160-400); Red Blood Count 3.61 X10*6/uL (4.20-5.50); Red Cell Distribution Width 13.4 % (11.0-16.0); White Blood Count 6.9 X10*3/uL (4.8-10.8)
[2024-02-01 06:26] LABS: Anion Gap 9 (12-20); Blood Urea Nitrogen 21 mg/dL (9-16); Calcium 9.3 mg/dL (8.4-10.2); Carbon Dioxide 15 mmol/L (22-29); Chloride 117 mmol/L (96-108); Estimated Glomerular Filt Rate 40; Glucose Random 89 mg/dL (60-115); Potassium 4.4 mmol/L (3.3-5.1); Sodium 137 mmol/L (135-145)
== END 2024-02-01 05:52 | disposition home or self-care (01) ==
LOC: HO.MMNH3L 05:51
PROVIDERS: Visit Provider Family Medicine
DX: I10 Essential (primary) hypertension (principal)
CPT/HCPCS: 36415; 80048; 85025

== ENCOUNTER 2024-02-08 05:57 | Outpatient (REF) | payer OTHER, SELFPAY ==
[2024-02-08 05:44] LABS: MANUAL DIFF FLAG NO
[2024-02-08 06:26] LABS: Basophils Percent Auto 0.5 % (0-2); Eosinophils Absolute Auto 0.2 X10*3/uL (0.0-0.4); Eosinophils Percent Auto 2.1 % (0-4); Hematocrit 38.1 % (37.0-47.0); Hemoglobin 11.9 g/dl (12.0-16.0); Imm Gran Abs Auto 0.03 X10*3/uL (0.00-0.03); Imm Gran Pct Auto 0.3 % (0.0-0.4); Lymphocytes Absolute Auto 1.6 X10*3/uL (1.2-4.9); Lymphocytes Percent Auto 18.5 % (20-40); Mean Corpuscular HGB Conc 31.2 g/dl (31.0-35.0); Mean Corpuscular Hemoglobin 27.4 pg (27.0-33.0); Mean Corpuscular Volume 87.8 fL (80.0-98.0); Mean Platelet Volume 12.5 fL (9.4-12.3); Monocytes Absolute Auto 0.6 X10*3/uL (0.1-1.2); Monocytes Percent Auto 6.6 % (2-11); Neutrophils Absolute Auto 6.3 x10*3/uL (2.0-8.3); Platelet Count 166 X10*3/uL (160-400); Red Blood Count 4.34 X10*6/uL (4.20-5.50); Red Cell Distribution Width 13.2 % (11.0-16.0); White Blood Count 8.8 X10*3/uL (4.8-10.8)
[2024-02-08 06:56] LABS: Anion Gap 13 (12-20); Blood Urea Nitrogen 18 mg/dL (9-16); Calcium 9.7 mg/dL (8.4-10.2); Carbon Dioxide 12 mmol/L (22-29); Chloride 117 mmol/L (96-108); Estimated Glomerular Filt Rate 45; Glucose Random 102 mg/dL (60-115); Potassium 4.8 mmol/L (3.3-5.1); Sodium 137 mmol/L (135-145)
== END 2024-02-08 05:58 | disposition home or self-care (01) ==
LOC: HO.MMNH3L 05:57
PROVIDERS: Visit Provider Family Medicine
DX: I10 Essential (primary) hypertension (principal)
CPT/HCPCS: 36415; 80048; 85025

== ENCOUNTER 2024-02-15 06:02 | Outpatient (REF) | payer OTHER, SELFPAY ==
[2024-02-15 06:03] LABS: MANUAL DIFF FLAG NO
[2024-02-15 06:46] LABS: Basophils Percent Auto 0.4 % (0-2); Eosinophils Absolute Auto 0.3 X10*3/uL (0.0-0.4); Hematocrit 32.5 % (37.0-47.0); Imm Gran Abs Auto 0.03 X10*3/uL (0.00-0.03); Imm Gran Pct Auto 0.4 % (0.0-0.4); Lymphocytes Absolute Auto 1.6 X10*3/uL (1.2-4.9); Lymphocytes Percent Auto 22.8 % (20-40); Mean Corpuscular HGB Conc 30.8 g/dl (31.0-35.0); Mean Corpuscular Hemoglobin 27.2 pg (27.0-33.0); Mean Corpuscular Volume 88.6 fL (80.0-98.0); Mean Platelet Volume 12.1 fL (9.4-12.3); Monocytes Absolute Auto 0.5 X10*3/uL (0.1-1.2); Monocytes Percent Auto 6.8 % (2-11); Neutrophils Absolute Auto 4.6 x10*3/uL (2.0-8.3); Neutrophils Percent Auto 65.6 % (45-73); Platelet Count 167 X10*3/uL (160-400); Red Blood Count 3.67 X10*6/uL (4.20-5.50); Red Cell Distribution Width 13.1 % (11.0-16.0)
[2024-02-15 06:55] LABS: Anion Gap 11 (12-20); Blood Urea Nitrogen 18 mg/dL (9-16); Calcium 9.3 mg/dL (8.4-10.2); Carbon Dioxide 13 mmol/L (22-29); Chloride 120 mmol/L (96-108); Estimated Glomerular Filt Rate 45; Glucose Random 91 mg/dL (60-115); Potassium 4.3 mmol/L (3.3-5.1); Sodium 140 mmol/L (135-145)
== END 2024-02-15 06:03 | disposition home or self-care (01) ==
LOC: HO.MMNH3L 06:02
PROVIDERS: Visit Provider Family Medicine
DX: I10 Essential (primary) hypertension (principal)
CPT/HCPCS: 36415; 80048; 85025

== ENCOUNTER 2024-02-22 05:52 | Outpatient (REF) | payer MEDICARE, SELFPAY ==
[2024-02-22 05:47] LABS: MANUAL DIFF FLAG NO
[2024-02-22 06:36] LABS: Anion Gap 13 (12-20); Blood Urea Nitrogen 24 mg/dL (9-16); Calcium 9.6 mg/dL (8.4-10.2); Carbon Dioxide 13 mmol/L (22-29); Chloride 119 mmol/L (96-108); Estimated Glomerular Filt Rate 33; Glucose Random 87 mg/dL (60-115); Potassium 4.5 mmol/L (3.3-5.1); Sodium 140 mmol/L (135-145)
[2024-02-22 07:01] LABS: Basophils Percent Auto 0.6 % (0-2); Eosinophils Absolute Auto 0.3 X10*3/uL (0.0-0.4); Eosinophils Percent Auto 4.2 % (0-4); Hematocrit 32.7 % (37.0-47.0); Imm Gran Abs Auto 0.02 X10*3/uL (0.00-0.03); Imm Gran Pct Auto 0.3 % (0.0-0.4); Mean Corpuscular HGB Conc 30.6 g/dl (31.0-35.0); Mean Corpuscular Hemoglobin 27.2 pg (27.0-33.0); Mean Corpuscular Volume 88.9 fL (80.0-98.0); Mean Platelet Volume 12.6 fL (9.4-12.3); Monocytes Absolute Auto 0.6 X10*3/uL (0.1-1.2); Monocytes Percent Auto 8.9 % (2-11); Neutrophils Absolute Auto 3.7 x10*3/uL (2.0-8.3); Platelet Count 168 X10*3/uL (160-400); Red Blood Count 3.68 X10*6/uL (4.20-5.50); Red Cell Distribution Width 13.3 % (11.0-16.0); White Blood Count 6.6 X10*3/uL (4.8-10.8)
== END 2024-02-22 05:53 | disposition home or self-care (01) ==
LOC: HO.MMNH3L 05:52
PROVIDERS: Hospitalist; Visit Provider Family Medicine
DX: I10 Essential (primary) hypertension (principal)
CPT/HCPCS: 36415; 80048; 85025

== ENCOUNTER 2024-02-29 06:21 | Outpatient (REF) | payer MEDICARE, SELFPAY ==
[2024-02-29 06:00] LABS: MANUAL DIFF FLAG NO
[2024-02-29 06:58] LABS: Basophils Percent Auto 0.7 % (0-2); Eosinophils Absolute Auto 0.3 X10*3/uL (0.0-0.4); Eosinophils Percent Auto 4.3 % (0-4); Hematocrit 33.6 % (37.0-47.0); Hemoglobin 10.5 g/dl (12.0-16.0); Imm Gran Abs Auto 0.01 X10*3/uL (0.00-0.03); Imm Gran Pct Auto 0.2 % (0.0-0.4); Lymphocytes Absolute Auto 1.4 X10*3/uL (1.2-4.9); Mean Corpuscular HGB Conc 31.3 g/dl (31.0-35.0); Mean Corpuscular Hemoglobin 27.4 pg (27.0-33.0); Mean Corpuscular Volume 87.7 fL (80.0-98.0); Mean Platelet Volume 12.4 fL (9.4-12.3); Monocytes Absolute Auto 0.5 X10*3/uL (0.1-1.2); Monocytes Percent Auto 7.8 % (2-11); Neutrophils Absolute Auto 3.8 x10*3/uL (2.0-8.3); Platelet Count 144 X10*3/uL (160-400); Red Blood Count 3.83 X10*6/uL (4.20-5.50); Red Cell Distribution Width 13.4 % (11.0-16.0)
[2024-02-29 07:01] LABS: Anion Gap 11 (12-20); Blood Urea Nitrogen 21 mg/dL (9-16); Calcium 9.3 mg/dL (8.4-10.2); Carbon Dioxide 13 mmol/L (22-29); Chloride 118 mmol/L (96-108); Estimated Glomerular Filt Rate 49; Glucose Random 87 mg/dL (60-115); Potassium 4.3 mmol/L (3.3-5.1); Sodium 138 mmol/L (135-145)
== END 2024-02-29 06:22 | disposition home or self-care (01) ==
LOC: HO.MMNH3L 06:21
PROVIDERS: Visit Provider Family Medicine
DX: I10 Essential (primary) hypertension (principal)
CPT/HCPCS: 36415; 80048; 85025

== ENCOUNTER 2024-03-07 05:41 | Outpatient (REF) | payer OTHER, SELFPAY ==
[2024-03-07 05:37] LABS: MANUAL DIFF FLAG NO
[2024-03-07 06:16] LABS: Basophils Percent Auto 0.4 % (0-2); Eosinophils Absolute Auto 0.3 X10*3/uL (0.0-0.4); Eosinophils Percent Auto 4.7 % (0-4); Hematocrit 36.8 % (37.0-47.0); Imm Gran Abs Auto 0.03 X10*3/uL (0.00-0.03); Imm Gran Pct Auto 0.4 % (0.0-0.4); Lymphocytes Absolute Auto 1.7 X10*3/uL (1.2-4.9); Lymphocytes Percent Auto 24.5 % (20-40); Mean Corpuscular HGB Conc 29.9 g/dl (31.0-35.0); Mean Corpuscular Hemoglobin 27.2 pg (27.0-33.0); Mean Corpuscular Volume 90.9 fL (80.0-98.0); Mean Platelet Volume 13.1 fL (9.4-12.3); Monocytes Absolute Auto 0.5 X10*3/uL (0.1-1.2); Monocytes Percent Auto 6.6 % (2-11); Neutrophils Absolute Auto 4.4 x10*3/uL (2.0-8.3); Neutrophils Percent Auto 63.4 % (45-73); Platelet Count 125 X10*3/uL (160-400); Red Blood Count 4.05 X10*6/uL (4.20-5.50); Red Cell Distribution Width 13.4 % (11.0-16.0)
[2024-03-07 06:43] LABS: Anion Gap 16 (12-20); Blood Urea Nitrogen 25 mg/dL (9-16); Calcium 9.3 mg/dL (8.4-10.2); Chloride 118 mmol/L (96-108); Estimated Glomerular Filt Rate 41; Glucose Random 95 mg/dL (60-115); Potassium 4.5 mmol/L (3.3-5.1); Sodium 139 mmol/L (135-145)
[2024-03-07 06:48] LABS: Carbon Dioxide 10 mmol/L (22-29)
== END 2024-03-07 05:42 | disposition home or self-care (01) ==
LOC: HO.MMNH3L 05:41
PROVIDERS: Visit Provider Family Medicine
DX: I10 Essential (primary) hypertension (principal)
CPT/HCPCS: 36415; 80048; 85025

== ENCOUNTER 2024-03-10 10:55 | Outpatient (AMB) | payer MEDICARE, MEDICAID, SELFPAY ==
--- NOTE | 2024-03-10 10:56 | MHC.PC.OV ---
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: No Accompanied by: Grand Child Allergies folic acid [FOLIC ACID] Allergy (Mild, Verified 03/10/24 11:28) AGITATION, visual hallucinations Medication List - Last Reconciled 03/10/24 by Savita Chahal MD acetaminophen 650 mg PO Q6H PRN adhesive tape ([employer]) As directed adhesive tape ([employer]) As directed amlodipine 5 mg PO DAILY 90 days ascorbic acid (vitamin C) 500 mg PO DAILY 90 days atorvastatin 40 mg PO BEDTIME 90 days clotrimazole 1% 1 appl topical BID 4 weeks [colostomy supplies pouch and paste As directed] diltiazem HCl CD 240 mg PO DAILY 90 days Donut pillow As directed enalapril maleate 20 mg PO DAILY 90 days [enteralite infinity bags As directed] ferrous sulfate 325 mg PO BID 90 days food supplemt, lactose-reduced (Ensure oral liquid) 1 ea PO TID 30 days [gauze split As directed] hydrochlorothiazide 25 mg PO DAILY mirtazapine 7.5 mg PO BEDTIME 90 days ostomy supplies As directed pantoprazole 40 mg PO DAILY sertraline 50 mg PO DAILY temazepam 30 mg PO BEDTIME PRN tramadol 50 mg PO QID PRN underpads (Certainty Underpads) As directed white petrolatum 41% (Aquaphor Healing) 1 appl topical DAILY PRN 30 days zinc sulfate 220 mg PO DAILY Tobacco use date assessed: 03/10/24 Fall risk assessment: No Falls in past year Last assessed Fall Risk: 03/10/24 Dental Screening Dental Screen Date: 03/10/24 Did you have a dental visit in the last 12 months?: Yes Did you have a dental problem in the last 6 months where you did not have access to dental care?: No Was dental information given to patient?: Patient has dentist HPI HPI Comments History of Present Illness Details This is a 78-year-old female with hypertension, atrial fibrillation, colostomy in place, malnutrition, pure hypercholesterolemia and mild recurrent major depression that comes today accompanied by granddaughter for follow-up on her conditions. Blood pressure elevated and I will add enalapril. Blood pressure will be recheck in 3 weeks by nurse navigator. On diltiazem for her atrial fibrillation. She has a BMI of 19.9 and was advised to increase her calories. On statins for elevated cholesterol. Depression stable with SSRIs. Walks with a cane for gait stability due to chronic low back pain. Last GFR is 41 and she is aware she has to avoid NSAIDs. [facility] Medical History (Updated 03/12/24 @ 08:31 by Savita Chahal MD) Jejunostomy present Anemia Jaundice Afib Chronic GERD Mild recurrent major depression Jejunostomy tube leak Colostomy in place Malnutrition Localized swelling of both lower legs Pneumonia Hospital discharge follow-up B12 deficiency Pure hypercholesterolemia Essential hypertension Surgical History H/O ileostomy Family History Mother Diabetes Father No problems noted. Social History [facility]: [facility] ([facility] Alcohol intake: former Patient Tobacco Use Status: Current someday Tobacco user Tobacco use type: Cigarette Cigarettes Per Day: 1 e-Cigarette/Vaping Use: Never Used Second Hand Smoke Exposure: No service: No Current occupational status: retired Cognitive needs: Yes Hearing needs: No Vision needs: No Questionnaire PHQ-9 Over the last 2 weeks, how often have you been bothered by any of the following problems? 1. Little interest or pleasure in doing things: not at all 2. Feeling down, depressed, or hopeless: not at all 3. Trouble falling or staying asleep, or sleeping too much: not at all 4. Feeling tired or having little energy: not at all 5. Poor appetite or overeating: not at all 6. Feeling bad about yourself - or that you are a failure or have let yourself or your family down: not at all 7. Trouble concentrating on things, such as reading the newspaper or watching television: not at all 8. Moving or speaking so slowly that other people could have noticed. Or the opposite - being so fidgety or restless that you have been moving around a lot more than usual: not at all 9. Thoughts that you would be better off or of hurting yourself in some way: not at all Total score: 0 Depression Screening Interpretation: Negative Depression Screening Done: Yes 62867 - PHQ-9 Billing: Yes Source: Developed by Drs. Enoch Vicente, Helena Mares, Gus Knight and colleagues, with an educational pam from [employer]. Thrive Questionnaire Date Thrive assessed: 03/10/24 I am a: Parent/Caregiver What is your living situation today?: I have a steady place to live Within the past 12 months, did the food you bought not last and you didn't have the money to get more?: Never true Within the past 12 months, did you worry whether your food would run out before you got money to buy more?: Never true Do you have trouble paying for medicines?: No Do you have trouble getting transportation to medical appointments?: No Do you have trouble paying your heating and electricity bill?: No Do you have trouble taking care of your child, family member or friend?: No Do you have trouble with day-to-day activities such as bathing, preparing meals, shopping, managing finances, etc.?: No Are you currently unemployed and looking for a job?: No Are you interested in more education?: No Please select the resources that you would like help with: None Currently or been in a relationship where the following occur: No concerns reported THRIVE Score: 0 AUDIT C Alcohol Use Questionnaire (AUDIT-C) 1. How often do you have a drink containing alcohol?: Never Total Score: 0 Score Reviewed/Action Taken: No JULIO-7 AMB Questionnaire JULIO-7 Date JULIO - 7 assessed: 03/10/24 Feeling nervous, anxious, or on edge: 0 = Not at all Not being able to stop or control worryin = Not at all Worrying too much about different things: 0 = Not at all Trouble relaxin = Not at all Being so restless that it is hard to sit still: 0 = Not at all Becoming easily annoyed or irritable: 0 = Not at all Feeling afraid as if something awful might happen: 0 = Not at all Total JULIO-7 score (0-4 normal; 5-9 mild; 10-14 moderate; 15-21 severe): 0 Source: Developed by Helena Jay Kurt Kroenke and colleagues, with an educational pam from [employer]. JULIO-7 Assessment Billing JULIO-7 Assessment Tool: JULIO-7 Assessment 34545 Review of Systems Const All systems reviewed & are unremarkable except as noted in HPI and below Card Denies chest pain at rest, Denies chest pain with activity, Denies edema, Denies irregular heart rhythm, Denies claudication, Denies dyspnea, Denies dyspnea on exertion, Denies orthopnea, Denies paroxysmal nocturnal dyspnea and Denies slow heart rate Resp Denies cough, Denies dyspnea and Denies dyspnea on exertion Musc Denies abnormal gait, Denies atrophy, Denies deformity and Denies limited range of motion Skin/Breast Denies bleeding lesions, Denies changing lesions and Denies rash Neuro Denies abnormal gait and Denies lack of coordination Physical exam (Primary Care) Vital Signs: Last Vital Signs BP 152/66 H 03/10/24 10:57 BMI result Body Mass Index 19.9 BMI Assessment/Plan discussion: Low BMI Low, Plan discussed: lifestyle, increase calorie intake and dietary Tobacco/Smoking Status: Tobacco use Status Tobacco use date assessed 03/10/24 03/10/24 11:15 Patient Tobacco Use Status Current someday Tobacco 03/10/24 11:15 Tobacco use type Cigarette 03/10/24 11:15 e-Cigarette/Vaping Use Never Used 03/10/24 11:15 PHQ-9: PHQ-9 Score PHQ-9: Total score 0 03/10/24 12:26 Depression Screening Interpretation: Negative Thrive Assessment: Date of Thrive Assessment Date Thrive assessed 03/10/24 03/10/24 11:15 Currently or been in a relationship where the following occur: No concerns reported Resp Effort & Inspection: normal respiratory effort Auscultation: clear to auscultation bilaterally Cardio Jugular venous distension: no JVD Rate: regular rate Rhythm: regular rhythm Heart sounds: S1 normal heart sound present and S2 normal heart sound present GI Other: colostomy bag in place Palpation (GI): Soft to palpation and nontender Auscultation: normal bowel sounds Extrem General: Yes full ROM Assessment and Plan Assessment & Plan (1) Afib: Code(s): I48.91 - Unspecified atrial fibrillation Plan: Continue diltiazem. Follow-up with Cardiology. (2) Mild recurrent major depression: Code(s): F33.0 - Major depressive disorder, recurrent, mild Plan: Continue SSRIs. (3) Colostomy in place: Code(s): Z93.3 - Colostomy status Plan: Continue colostomy bags care. (4) Malnutrition: Code(s): E46 - Unspecified protein-calorie malnutrition Qualifiers: Malnutrition type: protein-calorie malnutrition Protein-calorie malnutrition severity: moderate Qualified Code(s): E44.0 - Moderate protein-calorie malnutrition Plan: Increase caloric intake. (5) Essential hypertension: Code(s): I10 - Essential (primary) hypertension Plan: Restart enalapril. Blood pressure goal is equal or less than 130/80. Recheck blood pressure with nurse navigator in 3 weeks. (6) Pure hypercholesterolemia: Code(s): E78.00 - Pure hypercholesterolemia, unspecified Plan: Continue statins. (7) CKD (chronic kidney disease) stage 3, GFR 30-59 ml/min: Code(s): N18.30 - Chronic kidney disease, stage 3 unspecified Qualifiers: Chronic kidney disease stage 3 subtype: stage 3b (GFR 30-44) Qualified Code(s): N18.32 - Chronic kidney disease, stage 3b Plan: Avoid NSAIDs. Orders: Orders XR lumbar spine 2-3V 03/10/24 M54.50 - Low back pain, unspecified XR abdomen 1V 03/10/24 R10.9 - Unspecified abdominal pain Medications: Refilled clotrimazole 1% 1 appl topical BID 4 weeks 30 grams 1RF Resumed enalapril maleate 20 mg PO DAILY 90 days 90 tabs 1RF enalapril maleate 20 mg PO DAILY 90 days 90 tabs 1RF Coding Level of Care Code Est Pt Level 4 (13920) Complex EM visit Add On G2211 Diagnoses Afib I48.91 Mild recurrent major depression F33.[address] Z93.3 Moderate protein-calorie malnutrition E44.0 Malnutrition type: protein-calorie malnutrition Protein-calorie malnutrition severity: moderate Essential hypertension I10 Pure hypercholesterolemia E78.00 Stage 3b chronic kidney disease N18.32 Chronic kidney disease stage 3 subtype: stage 3b (GFR 30-44) Additional Codes JULIO-7 Assessment Billing - JULIO-7 Assessment Tool: JULIO-7 Assessment 12332 ([id number]) Time Spent (min) 22
[2024-03-10 10:57] VITALS: BP 152/66; BMI 19.9
== END 2024-03-10 11:45 | disposition home or self-care (01) ==
PROVIDERS: PCP Internal Medicine; Visit Provider Internal Medicine
DX: I12.9 Hypertensive chronic kidney disease with stage 1 through stage 4 chronic kidney disease, or unspecified chronic kidney disease (principal); N18.32 Chronic kidney disease, stage 3b; I48.91 Unspecified atrial fibrillation; F33.0 Major depressive disorder, recurrent, mild; Z93.3 Colostomy status; E44.0 Moderate protein-calorie malnutrition; E78.00 Pure hypercholesterolemia, unspecified
CPT/HCPCS: 99214; G2211

== ENCOUNTER 2024-03-14 05:55 | Outpatient (REF) | payer MEDICARE, MEDICAID, SELFPAY ==
[2024-03-14 05:54] LABS: MANUAL DIFF FLAG NO
[2024-03-14 06:31] LABS: Basophils Percent Auto 0.6 % (0-2); Eosinophils Absolute Auto 0.3 X10*3/uL (0.0-0.4); Hematocrit 32.5 % (37.0-47.0); Hemoglobin 10.2 g/dl (12.0-16.0); Imm Gran Abs Auto 0.02 X10*3/uL (0.00-0.03); Imm Gran Pct Auto 0.3 % (0.0-0.4); Lymphocytes Absolute Auto 1.9 X10*3/uL (1.2-4.9); Lymphocytes Percent Auto 30.5 % (20-40); Mean Corpuscular HGB Conc 31.4 g/dl (31.0-35.0); Mean Corpuscular Hemoglobin 27.6 pg (27.0-33.0); Mean Corpuscular Volume 88.1 fL (80.0-98.0); Monocytes Absolute Auto 0.5 X10*3/uL (0.1-1.2); Monocytes Percent Auto 8.6 % (2-11); Neutrophils Absolute Auto 3.5 x10*3/uL (2.0-8.3); Platelet Count 143 X10*3/uL (160-400); Red Blood Count 3.69 X10*6/uL (4.20-5.50); Red Cell Distribution Width 13.4 % (11.0-16.0); White Blood Count 6.2 X10*3/uL (4.8-10.8)
[2024-03-14 07:08] LABS: Anion Gap 12 (12-20); Blood Urea Nitrogen 42 mg/dL (9-16); Calcium 9.6 mg/dL (8.4-10.2); Carbon Dioxide 12 mmol/L (22-29); Chloride 121 mmol/L (96-108); Estimated Glomerular Filt Rate 36; Glucose Random 104 mg/dL (60-115); Potassium 4.5 mmol/L (3.3-5.1); Sodium 140 mmol/L (135-145)
== END 2024-03-14 05:56 | disposition home or self-care (01) ==
LOC: HO.MMNH3L 05:55
PROVIDERS: Visit Provider Family Medicine
DX: I10 Essential (primary) hypertension (principal)
CPT/HCPCS: 36415; 80048; 85025

== ENCOUNTER 2024-03-21 06:07 | Outpatient (REF) | payer MEDICARE, MEDICAID, SELFPAY ==
[2024-03-21 05:55] LABS: MANUAL DIFF FLAG NO
[2024-03-21 07:00] LABS: Basophils Percent Auto 0.6 % (0-2); Eosinophils Absolute Auto 0.3 X10*3/uL (0.0-0.4); Eosinophils Percent Auto 4.3 % (0-4); Hematocrit 36.5 % (37.0-47.0); Hemoglobin 11.4 g/dl (12.0-16.0); Imm Gran Abs Auto 0.03 X10*3/uL (0.00-0.03); Imm Gran Pct Auto 0.4 % (0.0-0.4); Lymphocytes Absolute Auto 1.4 X10*3/uL (1.2-4.9); Lymphocytes Percent Auto 19.3 % (20-40); Mean Corpuscular HGB Conc 31.2 g/dl (31.0-35.0); Mean Corpuscular Hemoglobin 27.3 pg (27.0-33.0); Mean Corpuscular Volume 87.3 fL (80.0-98.0); Mean Platelet Volume 13.1 fL (9.4-12.3); Monocytes Absolute Auto 0.5 X10*3/uL (0.1-1.2); Monocytes Percent Auto 7.7 % (2-11); Neutrophils Absolute Auto 4.7 x10*3/uL (2.0-8.3); Neutrophils Percent Auto 67.7 % (45-73); Platelet Count 128 X10*3/uL (160-400); Red Blood Count 4.18 X10*6/uL (4.20-5.50); Red Cell Distribution Width 13.8 % (11.0-16.0)
[2024-03-21 07:02] LABS: Anion Gap 12 (12-20); Blood Urea Nitrogen 26 mg/dL (9-16); Calcium 9.3 mg/dL (8.4-10.2); Carbon Dioxide 13 mmol/L (22-29); Chloride 116 mmol/L (96-108); Estimated Glomerular Filt Rate 41; Glucose Random 91 mg/dL (60-115); Sodium 137 mmol/L (135-145)
== END 2024-03-21 06:08 | disposition home or self-care (01) ==
LOC: HO.MMNH3L 06:07
PROVIDERS: Visit Provider Family Medicine
DX: I10 Essential (primary) hypertension (principal)
CPT/HCPCS: 36415; 80048; 85025

== ENCOUNTER 2024-03-29 06:43 | Outpatient (REF) | payer MEDICARE, MEDICAID, SELFPAY ==
[2024-03-29 05:53] LABS: MANUAL DIFF FLAG NO
[2024-03-29 06:31] LABS: Basophils Percent Auto 0.4 % (0-2); Eosinophils Absolute Auto 0.3 X10*3/uL (0.0-0.4); Eosinophils Percent Auto 3.4 % (0-4); Hematocrit 38.4 % (37.0-47.0); Hemoglobin 11.4 g/dl (12.0-16.0); Imm Gran Abs Auto 0.02 X10*3/uL (0.00-0.03); Imm Gran Pct Auto 0.2 % (0.0-0.4); Lymphocytes Absolute Auto 1.4 X10*3/uL (1.2-4.9); Mean Corpuscular HGB Conc 29.7 g/dl (31.0-35.0); Mean Corpuscular Hemoglobin 27.1 pg (27.0-33.0); Mean Corpuscular Volume 91.2 fL (80.0-98.0); Mean Platelet Volume 12.7 fL (9.4-12.3); Monocytes Absolute Auto 0.5 X10*3/uL (0.1-1.2); Monocytes Percent Auto 5.8 % (2-11); Neutrophils Absolute Auto 6.8 x10*3/uL (2.0-8.3); Neutrophils Percent Auto 75.2 % (45-73); Platelet Count 163 X10*3/uL (160-400); Red Blood Count 4.21 X10*6/uL (4.20-5.50); Red Cell Distribution Width 13.7 % (11.0-16.0); White Blood Count 9.1 X10*3/uL (4.8-10.8)
[2024-03-29 07:20] LABS: Blood Urea Nitrogen 20 mg/dL (9-16); Calcium 9.6 mg/dL (8.4-10.2); Estimated Glomerular Filt Rate 42; Glucose Random 114 mg/dL (60-115)
[2024-03-29 08:04] LABS: Anion Gap 15 (12-20); Carbon Dioxide 10 mmol/L (22-29); Chloride 121 mmol/L (96-108); Potassium 4.4 mmol/L (3.3-5.1); Sodium 142 mmol/L (135-145)
== END 2024-03-29 06:44 | disposition home or self-care (01) ==
LOC: HO.MMNH2L 06:43
PROVIDERS: Visit Provider Hospitalist
DX: I10 Essential (primary) hypertension (principal)
CPT/HCPCS: 36415; 80048; 85025

== ENCOUNTER 2024-03-31 12:07 | Outpatient (AMB) | payer MEDICARE, MEDICAID, SELFPAY ==
--- NOTE | 2024-03-31 12:18 | MHC.PC.OV ---
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 Accompanied by: Daughter Allergies folic acid [FOLIC ACID] Allergy (Mild, Verified 03/31/24 12:39) AGITATION, visual hallucinations Medication List - Last Reconciled 03/31/24 by Savita Chahal MD acetaminophen 650 mg PO Q6H PRN adhesive tape ([employer]) As directed adhesive tape ([employer]) As directed amlodipine 5 mg PO DAILY 90 days ascorbic acid (vitamin C) 500 mg PO DAILY 90 days atorvastatin 40 mg PO BEDTIME 90 days clotrimazole 1% 1 appl topical BID 4 weeks [colostomy supplies pouch and paste As directed] diltiazem HCl CD 240 mg PO DAILY 90 days Donut pillow As directed enalapril maleate 20 mg PO DAILY 90 days [enteralite infinity bags As directed] ferrous sulfate 325 mg PO BID 90 days food supplemt, lactose-reduced (Ensure oral liquid) 1 ea PO TID 30 days [gauze split As directed] hydrochlorothiazide 25 mg PO DAILY mirtazapine 7.5 mg PO BEDTIME 90 days ostomy supplies As directed pantoprazole 40 mg PO DAILY sertraline 50 mg PO DAILY temazepam 30 mg PO BEDTIME PRN tramadol 50 mg PO QID PRN underpads (Certainty Underpads) As directed white petrolatum 41% (Aquaphor Healing) 1 appl topical DAILY PRN 30 days zinc sulfate 220 mg PO DAILY Tobacco use date assessed: 03/10/24 Dental Screening Dental Screen Date: 03/10/24 HPI HPI Comments History of Present Illness Details This is a 78-year-old female with hypertension, pure hypercholesterolemia, mild recurrent major depression and atrial fibrillation that comes today for preop evaluation for cataract extraction and intraocular lens implant scheduled for this month. She denies any chest pain or shortness on breath. Currently in a wheelchair due to chronic low back pain. Blood pressure stable. Labs were review. EKG still pending for medical clearance. Has 4 Mets of ADLs. [facility] Medical History (Updated 03/31/24 @ 12:49 by Savita Chahal MD) Opioid dependence Stage 2 skin ulcer of sacral region Atrial fibrillation Jejunostomy present Anemia Jaundice Afib Chronic GERD Mild recurrent major depression Jejunostomy tube leak Colostomy in place Malnutrition Localized swelling of both lower legs Pneumonia Hospital discharge follow-up B12 deficiency Pure hypercholesterolemia Essential hypertension Surgical History H/O ileostomy Family History Mother Diabetes Father No problems noted. Social History Housing: Other (half-way) Alcohol intake: former Patient Tobacco Use Status: Current someday Tobacco user Tobacco use type: Cigarette Cigarettes Per Day: 1 e-Cigarette/Vaping Use: Never Used Second Hand Smoke Exposure: No service: No Current occupational status: retired Cognitive needs: Yes Hearing needs: No Vision needs: No Questionnaire Thrive Questionnaire Date Thrive assessed: 03/10/24 JULIO-7 AMB Questionnaire JULIO-7 Date JULIO - 7 assessed: 03/10/24 Source: Developed by Drs. Enoch Vicente, Helena Mares, Gus Knight and colleagues, with an educational pam from [employer]. Review of Systems Const All systems reviewed & are unremarkable except as noted in HPI and below Card Denies chest pain at rest, Denies chest pain with activity, Denies edema, Denies irregular heart rhythm, Denies claudication, Denies dyspnea, Denies dyspnea on exertion, Denies orthopnea, Denies paroxysmal nocturnal dyspnea and Denies slow heart rate Resp Denies cough, Denies dyspnea and Denies dyspnea on exertion GI Denies abdominal pain, Denies change in bowel habits, Denies excessive flatus, Denies nausea and Denies vomiting Denies urinary incontinence, Denies urinary hesitancy and Denies urinary urgency Musc Denies atrophy, Denies deformity and Denies limited range of motion Skin/Breast Denies bleeding lesions, Denies changing lesions and Denies rash Physical exam (Primary Care) Vital Signs: Last Vital Signs BP 108/56 L 03/31/24 12:21 BMI result Body Mass Index 19.8 BMI Assessment/Plan discussion: Low BMI Low, Plan discussed: lifestyle, increase calorie intake and dietary Tobacco/Smoking Status: Tobacco use Status Tobacco use date assessed 03/10/24 03/31/24 12:20 Patient Tobacco Use Status Current someday Tobacco 03/31/24 12:20 Tobacco use type Cigarette 03/31/24 12:20 e-Cigarette/Vaping Use Never Used 03/31/24 12:20 Are you ready to quit: No Tobacco cessation counseling provided: Yes Relapse Prevention: discussed the importance of a supportive environment Number of minutes spent counselin CPT code: Less than 3 minutes Thrive Assessment: Date of Thrive Assessment Date Thrive assessed 03/10/24 03/31/24 12:20 Const Limitations: wheelchair Resp Effort & Inspection: normal respiratory effort Auscultation: clear to auscultation bilaterally Cardio Jugular venous distension: no JVD Rate: regular rate Rhythm: regular rhythm Heart sounds: S1 normal heart sound present and S2 normal heart sound present Extrem General: Yes full ROM Assessment and Plan Assessment & Plan (1) Pre-op evaluation: Code(s): Z01.818 - Encounter for other preprocedural examination Plan: EKG pending for medical clearance. (2) Afib: Code(s): I48.91 - Unspecified atrial fibrillation Plan: Continue diltiazem. (3) Mild recurrent major depression: Code(s): F33.0 - Major depressive disorder, recurrent, mild Plan: Continue SSRIs (4) Essential hypertension: Code(s): I10 - Essential (primary) hypertension Plan: Continue enalapril and diltiazem. Blood pressure goal is equal or less than 130/80. (5) Pure hypercholesterolemia: Code(s): E78.00 - Pure hypercholesterolemia, unspecified Plan: Continue statins. Orders: Orders ECG 12 lead EKG Today Z01.818 - Encounter for other preprocedural examination Coding Level of Care Code Est Pt Level 4 (93899) Complex EM visit Add On G2211 Diagnoses Pre-op evaluation Z01.818 Afib I48.91 Mild recurrent major depression F33.0 Essential hypertension I10 Pure hypercholesterolemia E78.00 Time Spent (min) 24
[2024-03-31 12:21] VITALS: BP 108/56; BMI 19.8
[2024-03-31 12:48] VITALS: BP 110/60
== END 2024-03-31 12:49 | disposition home or self-care (01) ==
PROVIDERS: PCP Internal Medicine; Visit Provider Internal Medicine
DX: Z01.818 Encounter for other preprocedural examination (principal); H26.9 Unspecified cataract; I48.91 Unspecified atrial fibrillation; F33.0 Major depressive disorder, recurrent, mild; I10 Essential (primary) hypertension; E78.00 Pure hypercholesterolemia, unspecified
CPT/HCPCS: 99214; G2211

== ENCOUNTER → 2024-03-31 12:55 | Outpatient (REF) | payer MEDICARE, MEDICAID, SELFPAY ==
--- NOTE | 2024-03-31 13:04 | ECG_ITS ---
Test Reason : preop Blood Pressure : / mmHG Vent. Rate : 057 BPM Atrial Rate : 057 BPM P-R Int : 158 ms QRS Dur : 118 ms QT Int : 442 ms P-R-T Axes : 087 016 082 degrees QTc Int : 430 ms Sinus bradycardia with sinus arrhythmia Incomplete left bundle branch block Borderline ECG No previous ECGs available Referred By: Savita Chahal Electronically Signed By:MAHNAZ MONTIEL
== END ==
LOC: HO.CARD 12:55
PROVIDERS: PCP Internal Medicine; Visit Provider Internal Medicine
DX: Z01.818 Encounter for other preprocedural examination (principal)
CPT/HCPCS: 93005

== ENCOUNTER 2024-04-04 06:10 | Outpatient (REF) | payer MEDICARE, MEDICAID, SELFPAY ==
[2024-04-04 05:53] LABS: MANUAL DIFF FLAG NO
[2024-04-04 06:56] LABS: Anion Gap 12 (12-20); Blood Urea Nitrogen 25 mg/dL (9-16); Calcium 8.7 mg/dL (8.4-10.2); Carbon Dioxide 15 mmol/L (22-29); Chloride 119 mmol/L (96-108); Estimated Glomerular Filt Rate 54; Glucose Random 99 mg/dL (60-115); Potassium 4.5 mmol/L (3.3-5.1); Sodium 141 mmol/L (135-145)
[2024-04-04 07:02] LABS: Basophils Percent Auto 0.4 % (0-2); Eosinophils Absolute Auto 0.3 X10*3/uL (0.0-0.4); Hematocrit 30.8 % (37.0-47.0); Hemoglobin 9.5 g/dl (12.0-16.0); Imm Gran Abs Auto 0.02 X10*3/uL (0.00-0.03); Imm Gran Pct Auto 0.3 % (0.0-0.4); Lymphocytes Absolute Auto 1.3 X10*3/uL (1.2-4.9); Lymphocytes Percent Auto 19.2 % (20-40); Mean Corpuscular HGB Conc 30.8 g/dl (31.0-35.0); Mean Corpuscular Hemoglobin 26.8 pg (27.0-33.0); Mean Platelet Volume 12.8 fL (9.4-12.3); Monocytes Absolute Auto 0.5 X10*3/uL (0.1-1.2); Monocytes Percent Auto 6.9 % (2-11); Neutrophils Absolute Auto 4.8 x10*3/uL (2.0-8.3); Neutrophils Percent Auto 69.2 % (45-73); Platelet Count 166 X10*3/uL (160-400); Red Blood Count 3.54 X10*6/uL (4.20-5.50); Red Cell Distribution Width 13.6 % (11.0-16.0)
== END 2024-04-04 06:11 | disposition home or self-care (01) ==
LOC: HO.MMNH3L 06:10
PROVIDERS: Visit Provider Family Medicine
DX: I10 Essential (primary) hypertension (principal)
CPT/HCPCS: 36415; 80048; 85025

== ENCOUNTER 2024-04-11 06:12 | Outpatient (REF) | payer MEDICARE, MEDICAID, SELFPAY ==
[2024-04-11 06:08] LABS: MANUAL DIFF FLAG NO
[2024-04-11 06:56] LABS: Basophils Absolute Auto 0.1 X10*3/uL (0.0-0.2); Basophils Percent Auto 0.9 % (0-2); Eosinophils Absolute Auto 0.4 X10*3/uL (0.0-0.4); Eosinophils Percent Auto 5.4 % (0-4); Hematocrit 31.7 % (37.0-47.0); Hemoglobin 9.9 g/dl (12.0-16.0); Imm Gran Abs Auto 0.01 X10*3/uL (0.00-0.03); Imm Gran Pct Auto 0.2 % (0.0-0.4); Lymphocytes Absolute Auto 1.9 X10*3/uL (1.2-4.9); Lymphocytes Percent Auto 28.9 % (20-40); Mean Corpuscular HGB Conc 31.2 g/dl (31.0-35.0); Mean Corpuscular Hemoglobin 26.9 pg (27.0-33.0); Mean Corpuscular Volume 86.1 fL (80.0-98.0); Mean Platelet Volume 12.8 fL (9.4-12.3); Monocytes Absolute Auto 0.4 X10*3/uL (0.1-1.2); Monocytes Percent Auto 6.3 % (2-11); Neutrophils Absolute Auto 3.8 x10*3/uL (2.0-8.3); Neutrophils Percent Auto 58.3 % (45-73); Platelet Count 184 X10*3/uL (160-400); Red Blood Count 3.68 X10*6/uL (4.20-5.50); Red Cell Distribution Width 13.6 % (11.0-16.0); White Blood Count 6.5 X10*3/uL (4.8-10.8)
[2024-04-11 07:19] LABS: Anion Gap 12 (12-20); Blood Urea Nitrogen 26 mg/dL (9-16); Calcium 9.1 mg/dL (8.4-10.2); Carbon Dioxide 16 mmol/L (22-29); Chloride 117 mmol/L (96-108); Estimated Glomerular Filt Rate 47; Glucose Random 80 mg/dL (60-115); Potassium 4.4 mmol/L (3.3-5.1); Sodium 141 mmol/L (135-145)
== END 2024-04-11 06:13 | disposition home or self-care (01) ==
LOC: HO.MMNH3L 06:12
PROVIDERS: Visit Provider Family Medicine
DX: I10 Essential (primary) hypertension (principal)
CPT/HCPCS: 36415; 80048; 85025

== ENCOUNTER 2024-04-18 06:30 | Outpatient (REF) | payer MEDICARE, MEDICAID, SELFPAY ==
[2024-04-18 06:05] LABS: MANUAL DIFF FLAG NO
[2024-04-18 07:12] LABS: Anion Gap 13 (12-20); Blood Urea Nitrogen 36 mg/dL (9-16); Calcium 8.9 mg/dL (8.4-10.2); Carbon Dioxide 13 mmol/L (22-29); Chloride 115 mmol/L (96-108); Estimated Glomerular Filt Rate 37; Glucose Random 106 mg/dL (60-115); Potassium 4.8 mmol/L (3.3-5.1); Sodium 136 mmol/L (135-145)
[2024-04-18 07:17] LABS: Basophils Absolute Auto 0.1 X10*3/uL (0.0-0.2); Basophils Percent Auto 0.7 % (0-2); Eosinophils Absolute Auto 0.4 X10*3/uL (0.0-0.4); Eosinophils Percent Auto 5.4 % (0-4); Hematocrit 33.2 % (37.0-47.0); Hemoglobin 10.3 g/dl (12.0-16.0); Imm Gran Abs Auto 0.02 X10*3/uL (0.00-0.03); Imm Gran Pct Auto 0.3 % (0.0-0.4); Lymphocytes Absolute Auto 1.9 X10*3/uL (1.2-4.9); Lymphocytes Percent Auto 27.9 % (20-40); Mean Corpuscular Volume 87.1 fL (80.0-98.0); Mean Platelet Volume 12.6 fL (9.4-12.3); Monocytes Absolute Auto 0.6 X10*3/uL (0.1-1.2); Monocytes Percent Auto 8.1 % (2-11); Neutrophils Percent Auto 57.6 % (45-73); Platelet Count 194 X10*3/uL (160-400); Red Blood Count 3.81 X10*6/uL (4.20-5.50); Red Cell Distribution Width 13.4 % (11.0-16.0); White Blood Count 6.9 X10*3/uL (4.8-10.8)
== END 2024-04-18 06:31 | disposition home or self-care (01) ==
LOC: HO.MMNH3L 06:30
PROVIDERS: Visit Provider Family Medicine
DX: I10 Essential (primary) hypertension (principal)
CPT/HCPCS: 36415; 80048; 85025

== ENCOUNTER 2024-04-22 10:31 | Outpatient (REF) | payer MEDICARE, MEDICAID, SELFPAY ==
--- NOTE | ~2024-04-22 | XR_ITS ---
EXAMINATION: XR LUMBOSACRAL SPINE CLINICAL INFORMATION: M54.50 - Low back pain, unspecified COMPARISON: 09/17/2016, 08/29/2014. TECHNIQUE: Three views of the lumbosacral spine. FINDINGS: Since the prior exam, right convex scoliosis apex at L3-4 has increased to 33 degrees, previously approximately 25 degrees. There is a rotatory component. There is diffuse osteopenia. There appears to be stable mild inferior endplate compression deformity of L1. No additional compression deformities seen. There is an exaggerated lumbar lordosis. There are stairstep type minimal degenerative retrolistheses of T12 on L1, L1 on L2, L2 on L3. There appears to be a mild grade 1 anterolisthesis L5 on S1. Exact quantification is difficult due to obliquity on the lateral projections. Multilevel degenerative facet changes present, left greater than right. Sacrum appears intact. Degenerative changes of both SI joints and mild changes in both hip joints. Right lower quadrant ostomy present. Anastomotic chain fletcher seen in the mid pelvis, likely compartments procedure. Left common femoral artery stent in place. Surgical clips left upper lobe. Numerous granulomata noted in the lung bases. There are significant vascular calcifications. XR/XR lumbar spine 2-3V IMPRESSION: 1. No acute findings of the lumbar spine. Osteopenia. 2. Worsening right convex scoliosis, now severe approximately 33 degrees, previously 25 degrees in 2017. Rotatory component present. 3. Worsening advanced spondylosis as detailed. Electronically signed by: Yannick Fischer MD 07/01/2024 02:45 PM [facility]
--- NOTE | ~2024-04-22 | XR_ITS ---
EXAMINATION: XR ABDOMEN KUB CLINICAL INDICATION: R10.9 - Unspecified abdominal pain COMPARISON: None available. TECHNIQUE: AP view of the abdomen. FINDINGS: Bowel gas pattern is normal/nonspecific. There are no focally dilated loops. There is an ostomy in the right lower quadrant noted. There are chain sutures in the region of the mid pelvis, likely from Gant's procedure. There is a stent in the left common femoral artery. There are surgical clips in the left midabdomen. No organomegaly or intra-abdominal mass. No abnormal soft tissue calcifications aside from vascular calcifications. There are chronic changes with granuloma is noted in the lung bases. Osseous structures demonstrate a severe right convex lumbar scoliosis with associated degenerative spondylosis. There is osteopenia diffusely. There are mild hip joint degenerative changes. XR/XR abdomen 1V IMPRESSION: 1. No acute findings within the abdomen. 2. Ostomy right lower quadrant. Surgical chain fletcher midpelvis. 3. Severe osteopenia with severe right convex scoliosis of the lumbar spine. 4. Evidence of prior granulomatous disease in the lung bases. Electronically signed by: Yannick Fischer MD 07/01/2024 02:37 PM [facility]
== END 2024-04-22 10:32 | disposition home or self-care (01) ==
LOC: HO.LAB 10:31
PROVIDERS: PCP Internal Medicine; Visit Provider Internal Medicine
DX: R10.9 Unspecified abdominal pain (principal); M54.50 Low back pain, unspecified
CPT/HCPCS: 72100; 74018

== ENCOUNTER → 2024-04-22 10:38 | Outpatient (BNV) | payer MEDICARE, MEDICAID, SELFPAY | PROVIDERS: PCP Internal Medicine; Visit Provider Radiology Diagnostic Radiology | DX: M54.50 Low back pain, unspecified (principal); R10.9 Unspecified abdominal pain | CPT/HCPCS: 72100; 74018 ==

== ENCOUNTER 2024-04-25 06:48 | Outpatient (REF) | payer MEDICARE, MEDICAID, SELFPAY ==
[2024-04-25 05:50] LABS: MANUAL DIFF FLAG NO
[2024-04-25 06:57] LABS: Anion Gap 12 (12-20); Blood Urea Nitrogen 21 mg/dL (9-16); Calcium 9.2 mg/dL (8.4-10.2); Carbon Dioxide 15 mmol/L (22-29); Chloride 118 mmol/L (96-108); Estimated Glomerular Filt Rate 47; Glucose Random 83 mg/dL (60-115); Potassium 4.5 mmol/L (3.3-5.1); Sodium 140 mmol/L (135-145)
[2024-04-25 07:08] LABS: Basophils Percent Auto 0.6 % (0-2); Eosinophils Absolute Auto 0.3 X10*3/uL (0.0-0.4); Eosinophils Percent Auto 4.5 % (0-4); Hematocrit 30.4 % (37.0-47.0); Hemoglobin 9.5 g/dl (12.0-16.0); Imm Gran Abs Auto 0.02 X10*3/uL (0.00-0.03); Imm Gran Pct Auto 0.3 % (0.0-0.4); Lymphocytes Absolute Auto 1.8 X10*3/uL (1.2-4.9); Lymphocytes Percent Auto 28.8 % (20-40); Mean Corpuscular HGB Conc 31.3 g/dl (31.0-35.0); Mean Corpuscular Hemoglobin 27.3 pg (27.0-33.0); Mean Corpuscular Volume 87.4 fL (80.0-98.0); Mean Platelet Volume 12.8 fL (9.4-12.3); Monocytes Absolute Auto 0.5 X10*3/uL (0.1-1.2); Monocytes Percent Auto 7.7 % (2-11); Neutrophils Absolute Auto 3.7 x10*3/uL (2.0-8.3); Neutrophils Percent Auto 58.1 % (45-73); Platelet Count 157 X10*3/uL (160-400); Red Blood Count 3.48 X10*6/uL (4.20-5.50); Red Cell Distribution Width 13.8 % (11.0-16.0); White Blood Count 6.4 X10*3/uL (4.8-10.8)
== END 2024-04-25 06:49 | disposition home or self-care (01) ==
LOC: HO.MMNH3L 06:48
PROVIDERS: Visit Provider Family Medicine
DX: I10 Essential (primary) hypertension (principal)
CPT/HCPCS: 36415; 80048; 85025

== ENCOUNTER 2024-05-02 06:36 | Outpatient (REF) | payer MEDICARE, MEDICAID, SELFPAY ==
[2024-05-02 06:14] LABS: MANUAL DIFF FLAG NO
[2024-05-02 07:14] LABS: Anion Gap 10 (12-20); Blood Urea Nitrogen 15 mg/dL (9-16); Calcium 9.1 mg/dL (8.4-10.2); Carbon Dioxide 13 mmol/L (22-29); Chloride 118 mmol/L (96-108); Estimated Glomerular Filt Rate 41; Glucose Random 90 mg/dL (60-115); Potassium 4.5 mmol/L (3.3-5.1); Sodium 136 mmol/L (135-145)
[2024-05-02 07:18] LABS: Basophils Percent Auto 0.7 % (0-2); Eosinophils Absolute Auto 0.3 X10*3/uL (0.0-0.4); Eosinophils Percent Auto 4.4 % (0-4); Hematocrit 32.7 % (37.0-47.0); Hemoglobin 10.3 g/dl (12.0-16.0); Imm Gran Abs Auto 0.02 X10*3/uL (0.00-0.03); Imm Gran Pct Auto 0.3 % (0.0-0.4); Lymphocytes Absolute Auto 1.4 X10*3/uL (1.2-4.9); Lymphocytes Percent Auto 22.2 % (20-40); Mean Corpuscular HGB Conc 31.5 g/dl (31.0-35.0); Mean Corpuscular Hemoglobin 27.2 pg (27.0-33.0); Mean Corpuscular Volume 86.3 fL (80.0-98.0); Mean Platelet Volume 13.3 fL (9.4-12.3); Monocytes Absolute Auto 0.4 X10*3/uL (0.1-1.2); Monocytes Percent Auto 7.2 % (2-11); Neutrophils Percent Auto 65.2 % (45-73); Platelet Count 156 X10*3/uL (160-400); Red Blood Count 3.79 X10*6/uL (4.20-5.50); White Blood Count 6.1 X10*3/uL (4.8-10.8)
== END 2024-05-02 06:37 | disposition home or self-care (01) ==
LOC: HO.MMNH3L 06:36
PROVIDERS: Visit Provider Family Medicine
DX: I10 Essential (primary) hypertension (principal)
CPT/HCPCS: 36415; 80048; 85025

== ENCOUNTER 2024-05-09 06:49 | Outpatient (REF) | payer MEDICARE, MEDICAID, SELFPAY ==
[2024-05-09 06:04] LABS: MANUAL DIFF FLAG NO
[2024-05-09 07:20] LABS: Anion Gap 12 (12-20); Blood Urea Nitrogen 28 mg/dL (9-16); Carbon Dioxide 15 mmol/L (22-29); Chloride 117 mmol/L (96-108); Estimated Glomerular Filt Rate 56; Glucose Random 91 mg/dL (60-115); Potassium 4.5 mmol/L (3.3-5.1); Sodium 139 mmol/L (135-145)
[2024-05-09 07:24] LABS: Basophils Absolute Auto 0.1 X10*3/uL (0.0-0.2); Basophils Percent Auto 0.6 % (0-2); Eosinophils Absolute Auto 0.3 X10*3/uL (0.0-0.4); Eosinophils Percent Auto 4.1 % (0-4); Hematocrit 34.2 % (37.0-47.0); Hemoglobin 10.8 g/dl (12.0-16.0); Imm Gran Abs Auto 0.02 X10*3/uL (0.00-0.03); Imm Gran Pct Auto 0.3 % (0.0-0.4); Lymphocytes Absolute Auto 1.5 X10*3/uL (1.2-4.9); Lymphocytes Percent Auto 19.2 % (20-40); Mean Corpuscular HGB Conc 31.6 g/dl (31.0-35.0); Mean Corpuscular Hemoglobin 27.4 pg (27.0-33.0); Mean Corpuscular Volume 86.8 fL (80.0-98.0); Monocytes Absolute Auto 0.6 X10*3/uL (0.1-1.2); Monocytes Percent Auto 7.6 % (2-11); Neutrophils Absolute Auto 5.3 x10*3/uL (2.0-8.3); Neutrophils Percent Auto 68.2 % (45-73); Platelet Count 146 X10*3/uL (160-400); Red Blood Count 3.94 X10*6/uL (4.20-5.50); White Blood Count 7.7 X10*3/uL (4.8-10.8)
== END 2024-05-09 06:50 | disposition home or self-care (01) ==
LOC: HO.MMNH3L 06:49
PROVIDERS: Visit Provider Family Medicine
DX: I10 Essential (primary) hypertension (principal)
CPT/HCPCS: 36415; 80048; 85025

== ENCOUNTER 2024-05-16 06:17 | Outpatient (REF) | payer MEDICARE, MEDICAID, SELFPAY ==
[2024-05-16 06:03] LABS: MANUAL DIFF FLAG NO
[2024-05-16 07:18] LABS: Basophils Percent Auto 0.6 % (0-2); Eosinophils Absolute Auto 0.3 X10*3/uL (0.0-0.4); Eosinophils Percent Auto 4.3 % (0-4); Hematocrit 34.3 % (37.0-47.0); Hemoglobin 10.6 g/dl (12.0-16.0); Imm Gran Abs Auto 0.02 X10*3/uL (0.00-0.03); Imm Gran Pct Auto 0.3 % (0.0-0.4); Lymphocytes Absolute Auto 1.3 X10*3/uL (1.2-4.9); Lymphocytes Percent Auto 20.6 % (20-40); Mean Corpuscular HGB Conc 30.9 g/dl (31.0-35.0); Mean Corpuscular Hemoglobin 27.2 pg (27.0-33.0); Mean Corpuscular Volume 87.9 fL (80.0-98.0); Mean Platelet Volume 13.4 fL (9.4-12.3); Monocytes Absolute Auto 0.6 X10*3/uL (0.1-1.2); Monocytes Percent Auto 8.5 % (2-11); Neutrophils Absolute Auto 4.3 x10*3/uL (2.0-8.3); Neutrophils Percent Auto 65.7 % (45-73); Platelet Count 133 X10*3/uL (160-400); White Blood Count 6.5 X10*3/uL (4.8-10.8)
[2024-05-16 07:27] LABS: Anion Gap 14 (12-20); Blood Urea Nitrogen 34 mg/dL (9-16); Calcium 9.5 mg/dL (8.4-10.2); Carbon Dioxide 14 mmol/L (22-29); Chloride 115 mmol/L (96-108); Estimated Glomerular Filt Rate 44; Glucose Random 91 mg/dL (60-115); Potassium 4.5 mmol/L (3.3-5.1); Sodium 138 mmol/L (135-145)
== END 2024-05-16 06:18 | disposition home or self-care (01) ==
LOC: HO.MMNH3L 06:17
PROVIDERS: Visit Provider Family Medicine
DX: I10 Essential (primary) hypertension (principal)
CPT/HCPCS: 36415; 80048; 85025

== ENCOUNTER 2024-05-23 06:18 | Outpatient (REF) | payer MEDICARE, MEDICAID, SELFPAY ==
[2024-05-23 06:04] LABS: MANUAL DIFF FLAG NO
[2024-05-23 07:07] LABS: Basophils Percent Auto 0.5 % (0-2); Eosinophils Absolute Auto 0.4 X10*3/uL (0.0-0.4); Eosinophils Percent Auto 6.4 % (0-4); Hematocrit 33.3 % (37.0-47.0); Hemoglobin 10.3 g/dl (12.0-16.0); Imm Gran Abs Auto 0.02 X10*3/uL (0.00-0.03); Imm Gran Pct Auto 0.4 % (0.0-0.4); Lymphocytes Absolute Auto 1.3 X10*3/uL (1.2-4.9); Lymphocytes Percent Auto 23.6 % (20-40); Mean Corpuscular HGB Conc 30.9 g/dl (31.0-35.0); Mean Corpuscular Hemoglobin 27.1 pg (27.0-33.0); Mean Corpuscular Volume 87.6 fL (80.0-98.0); Mean Platelet Volume 13.9 fL (9.4-12.3); Monocytes Absolute Auto 0.4 X10*3/uL (0.1-1.2); Monocytes Percent Auto 6.8 % (2-11); Neutrophils Absolute Auto 3.4 x10*3/uL (2.0-8.3); Neutrophils Percent Auto 62.3 % (45-73); Platelet Count 143 X10*3/uL (160-400); Red Cell Distribution Width 14.1 % (11.0-16.0); White Blood Count 5.5 X10*3/uL (4.8-10.8)
[2024-05-23 07:23] LABS: Anion Gap 12 (12-20); Blood Urea Nitrogen 25 mg/dL (9-16); Calcium 9.9 mg/dL (8.4-10.2); Carbon Dioxide 15 mmol/L (22-29); Chloride 114 mmol/L (96-108); Estimated Glomerular Filt Rate 50; Glucose Random 95 mg/dL (60-115); Potassium 4.7 mmol/L (3.3-5.1); Sodium 136 mmol/L (135-145)
== END 2024-05-23 06:19 | disposition home or self-care (01) ==
LOC: HO.MMNH3L 06:18
PROVIDERS: Visit Provider Family Medicine
DX: I10 Essential (primary) hypertension (principal)
CPT/HCPCS: 36415; 80048; 85025

== ENCOUNTER 2024-05-30 06:37 | Outpatient (REF) | payer MEDICARE, MEDICAID, SELFPAY ==
[2024-05-30 06:02] LABS: MANUAL DIFF FLAG NO
[2024-05-30 07:15] LABS: Basophils Percent Auto 0.5 % (0-2); Eosinophils Absolute Auto 0.3 X10*3/uL (0.0-0.4); Eosinophils Percent Auto 4.9 % (0-4); Hematocrit 32.8 % (37.0-47.0); Hemoglobin 10.5 g/dl (12.0-16.0); Imm Gran Abs Auto 0.03 X10*3/uL (0.00-0.03); Imm Gran Pct Auto 0.5 % (0.0-0.4); Lymphocytes Absolute Auto 1.2 X10*3/uL (1.2-4.9); Lymphocytes Percent Auto 18.4 % (20-40); Mean Corpuscular Hemoglobin 27.6 pg (27.0-33.0); Mean Corpuscular Volume 86.1 fL (80.0-98.0); Mean Platelet Volume 13.1 fL (9.4-12.3); Monocytes Absolute Auto 0.5 X10*3/uL (0.1-1.2); Monocytes Percent Auto 7.9 % (2-11); Neutrophils Absolute Auto 4.3 x10*3/uL (2.0-8.3); Neutrophils Percent Auto 67.8 % (45-73); Platelet Count 150 X10*3/uL (160-400); Red Blood Count 3.81 X10*6/uL (4.20-5.50); Red Cell Distribution Width 13.9 % (11.0-16.0); White Blood Count 6.3 X10*3/uL (4.8-10.8)
[2024-05-30 08:09] LABS: Anion Gap 13 (12-20); Blood Urea Nitrogen 33 mg/dL (9-16); Calcium 10.1 mg/dL (8.4-10.2); Carbon Dioxide 15 mmol/L (22-29); Chloride 116 mmol/L (96-108); Estimated Glomerular Filt Rate 43; Glucose Random 111 mg/dL (60-115); Potassium 4.8 mmol/L (3.3-5.1); Sodium 139 mmol/L (135-145)
== END 2024-05-30 06:38 | disposition home or self-care (01) ==
LOC: HO.MMNH3L 06:37
PROVIDERS: Visit Provider Family Medicine
DX: Z13.89 Encounter for screening for other disorder (principal)
CPT/HCPCS: 36415; 80048; 85025

== ENCOUNTER 2024-06-06 06:06 | Outpatient (REF) | payer MEDICARE, MEDICAID, SELFPAY ==
[2024-06-06 05:48] LABS: MANUAL DIFF FLAG NO
[2024-06-06 06:39] LABS: Basophils Percent Auto 0.6 % (0-2); Eosinophils Absolute Auto 0.4 X10*3/uL (0.0-0.4); Eosinophils Percent Auto 5.4 % (0-4); Hematocrit 34.1 % (37.0-47.0); Hemoglobin 10.6 g/dl (12.0-16.0); Imm Gran Abs Auto 0.01 X10*3/uL (0.00-0.03); Imm Gran Pct Auto 0.2 % (0.0-0.4); Lymphocytes Absolute Auto 1.6 X10*3/uL (1.2-4.9); Lymphocytes Percent Auto 24.5 % (20-40); Mean Corpuscular HGB Conc 31.1 g/dl (31.0-35.0); Mean Corpuscular Hemoglobin 26.8 pg (27.0-33.0); Mean Corpuscular Volume 86.3 fL (80.0-98.0); Monocytes Absolute Auto 0.5 X10*3/uL (0.1-1.2); Monocytes Percent Auto 8.2 % (2-11); Neutrophils Percent Auto 61.1 % (45-73); Platelet Count 138 X10*3/uL (160-400); Red Blood Count 3.95 X10*6/uL (4.20-5.50); Red Cell Distribution Width 13.8 % (11.0-16.0); White Blood Count 6.5 X10*3/uL (4.8-10.8)
[2024-06-06 07:13] LABS: Anion Gap 12 (12-20); Blood Urea Nitrogen 26 mg/dL (9-16); Calcium 9.5 mg/dL (8.4-10.2); Carbon Dioxide 15 mmol/L (22-29); Chloride 116 mmol/L (96-108); Estimated Glomerular Filt Rate 51; Glucose Random 94 mg/dL (60-115); Potassium 4.8 mmol/L (3.3-5.1); Sodium 138 mmol/L (135-145)
== END 2024-06-06 06:07 | disposition home or self-care (01) ==
LOC: HO.MMNH3L 06:06
PROVIDERS: Visit Provider Family Medicine
DX: I10 Essential (primary) hypertension (principal)
CPT/HCPCS: 36415; 80048; 85025

== ENCOUNTER 2024-06-13 05:46 | Outpatient (REF) | payer MEDICARE, MEDICAID, SELFPAY ==
[2024-06-13 05:39] LABS: MANUAL DIFF FLAG NO
[2024-06-13 06:39] LABS: Anion Gap 13 (12-20); Blood Urea Nitrogen 17 mg/dL (9-16); Calcium 9.3 mg/dL (8.4-10.2); Chloride 121 mmol/L (96-108); Estimated Glomerular Filt Rate 46; Glucose Random 89 mg/dL (60-115); Potassium 4.5 mmol/L (3.3-5.1); Sodium 139 mmol/L (135-145)
[2024-06-13 06:59] LABS: Carbon Dioxide 10 mmol/L (22-29)
[2024-06-13 07:15] LABS: Basophils Percent Auto 0.6 % (0-2); Eosinophils Absolute Auto 0.3 X10*3/uL (0.0-0.4); Eosinophils Percent Auto 4.7 % (0-4); Hematocrit 33.4 % (37.0-47.0); Hemoglobin 10.2 g/dl (12.0-16.0); Imm Gran Abs Auto 0.02 X10*3/uL (0.00-0.03); Imm Gran Pct Auto 0.4 % (0.0-0.4); Lymphocytes Absolute Auto 1.8 X10*3/uL (1.2-4.9); Lymphocytes Percent Auto 32.9 % (20-40); Mean Corpuscular HGB Conc 30.5 g/dl (31.0-35.0); Mean Corpuscular Volume 88.4 fL (80.0-98.0); Mean Platelet Volume 13.2 fL (9.4-12.3); Monocytes Absolute Auto 0.5 X10*3/uL (0.1-1.2); Neutrophils Absolute Auto 2.8 x10*3/uL (2.0-8.3); Neutrophils Percent Auto 52.4 % (45-73); Platelet Count 140 X10*3/uL (160-400); Red Blood Count 3.78 X10*6/uL (4.20-5.50); White Blood Count 5.4 X10*3/uL (4.8-10.8)
== END 2024-06-13 05:47 | disposition home or self-care (01) ==
LOC: HO.MMNH3L 05:46
PROVIDERS: Visit Provider Family Medicine
DX: I10 Essential (primary) hypertension (principal)
CPT/HCPCS: 36415; 80048; 85025

== ENCOUNTER 2024-06-14 05:34 | Outpatient (REF) | payer MEDICARE, MEDICAID, SELFPAY ==
[2024-06-14 05:39] LABS: MANUAL DIFF FLAG NO
[2024-06-14 06:16] LABS: Basophils Percent Auto 0.3 % (0-2); Eosinophils Absolute Auto 0.3 X10*3/uL (0.0-0.4); Eosinophils Percent Auto 4.1 % (0-4); Hematocrit 33.5 % (37.0-47.0); Hemoglobin 10.5 g/dl (12.0-16.0); Imm Gran Abs Auto 0.02 X10*3/uL (0.00-0.03); Imm Gran Pct Auto 0.3 % (0.0-0.4); Lymphocytes Absolute Auto 1.4 X10*3/uL (1.2-4.9); Lymphocytes Percent Auto 22.9 % (20-40); Mean Corpuscular HGB Conc 31.3 g/dl (31.0-35.0); Mean Corpuscular Hemoglobin 27.1 pg (27.0-33.0); Mean Corpuscular Volume 86.3 fL (80.0-98.0); Mean Platelet Volume 12.9 fL (9.4-12.3); Monocytes Absolute Auto 0.4 X10*3/uL (0.1-1.2); Monocytes Percent Auto 6.1 % (2-11); Neutrophils Percent Auto 66.3 % (45-73); Platelet Count 138 X10*3/uL (160-400); Red Blood Count 3.88 X10*6/uL (4.20-5.50); Red Cell Distribution Width 14.1 % (11.0-16.0); White Blood Count 6.1 X10*3/uL (4.8-10.8)
[2024-06-14 06:39] LABS: Alanine Aminotransferase 14 U/L (0-31); Albumin Level 3.5 g/dL (3.5-5.0); Alkaline Phosphatase 99 U/L (39-117); Anion Gap 9 (12-20); Aspartate Amino Transferase 25 U/L (5-31); Bilirubin Direct 0.2 mg/dL (0.0-0.5); Bilirubin Total 0.4 mg/dL (0.0-1.0); Blood Urea Nitrogen 13 mg/dL (9-16); Calcium 9.3 mg/dL (8.4-10.2); Carbon Dioxide 15 mmol/L (22-29); Chloride 121 mmol/L (96-108); Estimated Glomerular Filt Rate 56; Glucose Random 91 mg/dL (60-115); Potassium 4.3 mmol/L (3.3-5.1); Sodium 141 mmol/L (135-145); Total Protein 6.4 g/dL (6.5-8.0)
[2024-06-14 06:47] LABS: Thyroid Stimulating Hormone 1.33 uIU/mL (0.32-4.0)
== END 2024-06-14 05:35 | disposition home or self-care (01) ==
LOC: HO.MMNH3L 05:34
PROVIDERS: Visit Provider Family Medicine
DX: R79.81 Abnormal blood-gas level (principal)
CPT/HCPCS: 36415; 80053; 82248; 84443; 85025

== ENCOUNTER 2024-06-20 05:50 | Outpatient (REF) | payer MEDICARE, MEDICAID, SELFPAY ==
[2024-06-20 05:40] LABS: MANUAL DIFF FLAG NO
[2024-06-20 06:18] LABS: Basophils Percent Auto 0.5 % (0-2); Eosinophils Absolute Auto 0.3 X10*3/uL (0.0-0.4); Eosinophils Percent Auto 3.6 % (0-4); Hematocrit 34.1 % (37.0-47.0); Hemoglobin 10.8 g/dl (12.0-16.0); Imm Gran Abs Auto 0.03 X10*3/uL (0.00-0.03); Imm Gran Pct Auto 0.4 % (0.0-0.4); Lymphocytes Absolute Auto 1.5 X10*3/uL (1.2-4.9); Lymphocytes Percent Auto 19.3 % (20-40); Mean Corpuscular HGB Conc 31.7 g/dl (31.0-35.0); Mean Corpuscular Volume 85.3 fL (80.0-98.0); Mean Platelet Volume 12.7 fL (9.4-12.3); Monocytes Absolute Auto 0.6 X10*3/uL (0.1-1.2); Monocytes Percent Auto 7.5 % (2-11); Neutrophils Absolute Auto 5.4 x10*3/uL (2.0-8.3); Neutrophils Percent Auto 68.7 % (45-73); Platelet Count 159 X10*3/uL (160-400); Red Cell Distribution Width 13.9 % (11.0-16.0); White Blood Count 7.9 X10*3/uL (4.8-10.8)
[2024-06-20 06:52] LABS: Anion Gap 13 (12-20); Blood Urea Nitrogen 27 mg/dL (9-16); Calcium 9.1 mg/dL (8.4-10.2); Chloride 118 mmol/L (96-108); Estimated Glomerular Filt Rate 42; Glucose Random 106 mg/dL (60-115); Potassium 4.2 mmol/L (3.3-5.1); Sodium 137 mmol/L (135-145)
[2024-06-20 07:21] LABS: Carbon Dioxide 10 mmol/L (22-29)
== END 2024-06-20 05:51 | disposition home or self-care (01) ==
LOC: HO.MMNH3L 05:50
PROVIDERS: Visit Provider Family Medicine
DX: I10 Essential (primary) hypertension (principal)
CPT/HCPCS: 36415; 80048; 85025

== ENCOUNTER 2024-06-27 06:28 | Outpatient (REF) | payer MEDICARE, MEDICAID, SELFPAY ==
[2024-06-27 06:19] LABS: MANUAL DIFF FLAG NO
[2024-06-27 06:27] LABS: Basophils Percent Auto 0.6 % (0-2); Eosinophils Absolute Auto 0.4 X10*3/uL (0.0-0.4); Hematocrit 32.9 % (37.0-47.0); Hemoglobin 10.3 g/dl (12.0-16.0); Imm Gran Abs Auto 0.03 X10*3/uL (0.00-0.03); Imm Gran Pct Auto 0.4 % (0.0-0.4); Lymphocytes Absolute Auto 1.8 X10*3/uL (1.2-4.9); Lymphocytes Percent Auto 24.9 % (20-40); Mean Corpuscular HGB Conc 31.3 g/dl (31.0-35.0); Mean Corpuscular Hemoglobin 26.8 pg (27.0-33.0); Mean Corpuscular Volume 85.5 fL (80.0-98.0); Mean Platelet Volume 12.4 fL (9.4-12.3); Monocytes Absolute Auto 0.6 X10*3/uL (0.1-1.2); Monocytes Percent Auto 7.6 % (2-11); Neutrophils Absolute Auto 4.4 x10*3/uL (2.0-8.3); Neutrophils Percent Auto 60.5 % (45-73); Platelet Count 158 X10*3/uL (160-400); Red Blood Count 3.85 X10*6/uL (4.20-5.50); Red Cell Distribution Width 13.9 % (11.0-16.0); White Blood Count 7.2 X10*3/uL (4.8-10.8)
[2024-06-27 06:54] LABS: Anion Gap 10 (12-20); Blood Urea Nitrogen 23 mg/dL (9-16); Carbon Dioxide 15 mmol/L (22-29); Chloride 117 mmol/L (96-108); Estimated Glomerular Filt Rate 40; Glucose Random 97 mg/dL (60-115); Potassium 4.3 mmol/L (3.3-5.1); Sodium 138 mmol/L (135-145)
== END 2024-06-27 06:29 | disposition home or self-care (01) ==
LOC: HO.MMNH3L 06:28
PROVIDERS: Visit Provider Family Medicine
DX: I10 Essential (primary) hypertension (principal)
CPT/HCPCS: 36415; 80048; 85025

== ENCOUNTER 2024-07-04 06:04 | Outpatient (REF) | payer MEDICARE, MEDICAID, SELFPAY ==
[2024-07-04 05:44] LABS: MANUAL DIFF FLAG NO
[2024-07-04 06:21] LABS: Basophils Absolute Auto 0.1 X10*3/uL (0.0-0.2); Basophils Percent Auto 0.8 % (0-2); Eosinophils Absolute Auto 0.3 X10*3/uL (0.0-0.4); Eosinophils Percent Auto 4.6 % (0-4); Hematocrit 32.9 % (37.0-47.0); Hemoglobin 10.4 g/dl (12.0-16.0); Imm Gran Abs Auto 0.03 X10*3/uL (0.00-0.03); Imm Gran Pct Auto 0.5 % (0.0-0.4); Lymphocytes Absolute Auto 1.5 X10*3/uL (1.2-4.9); Lymphocytes Percent Auto 24.2 % (20-40); Mean Corpuscular HGB Conc 31.6 g/dl (31.0-35.0); Mean Corpuscular Hemoglobin 26.7 pg (27.0-33.0); Mean Corpuscular Volume 84.4 fL (80.0-98.0); Mean Platelet Volume 12.9 fL (9.4-12.3); Monocytes Absolute Auto 0.5 X10*3/uL (0.1-1.2); Monocytes Percent Auto 8.2 % (2-11); Neutrophils Absolute Auto 3.9 x10*3/uL (2.0-8.3); Neutrophils Percent Auto 61.7 % (45-73); Platelet Count 172 X10*3/uL (160-400); Red Cell Distribution Width 13.4 % (11.0-16.0); White Blood Count 6.4 X10*3/uL (4.8-10.8)
[2024-07-04 06:57] LABS: Anion Gap 14 (12-20); Blood Urea Nitrogen 25 mg/dL (9-16); Calcium 9.5 mg/dL (8.4-10.2); Carbon Dioxide 16 mmol/L (22-29); Chloride 111 mmol/L (96-108); Estimated Glomerular Filt Rate 47; Glucose Random 85 mg/dL (60-115); Potassium 4.6 mmol/L (3.3-5.1); Sodium 136 mmol/L (135-145)
== END 2024-07-04 06:05 | disposition home or self-care (01) ==
LOC: HO.MMNH3L 06:04
PROVIDERS: Visit Provider Family Medicine
DX: I10 Essential (primary) hypertension (principal)
CPT/HCPCS: 36415; 80048; 85025

== ENCOUNTER 2024-07-11 06:13 | Outpatient (REF) | payer MEDICARE, MEDICAID, SELFPAY ==
[2024-07-11 05:40] LABS: MANUAL DIFF FLAG NO
[2024-07-11 06:14] LABS: Basophils Percent Auto 0.5 % (0-2); Eosinophils Absolute Auto 0.4 X10*3/uL (0.0-0.4); Eosinophils Percent Auto 6.1 % (0-4); Hematocrit 32.2 % (37.0-47.0); Hemoglobin 9.9 g/dl (12.0-16.0); Imm Gran Abs Auto 0.02 X10*3/uL (0.00-0.03); Imm Gran Pct Auto 0.3 % (0.0-0.4); Lymphocytes Absolute Auto 1.6 X10*3/uL (1.2-4.9); Lymphocytes Percent Auto 27.7 % (20-40); Mean Corpuscular HGB Conc 30.7 g/dl (31.0-35.0); Mean Corpuscular Hemoglobin 26.8 pg (27.0-33.0); Mean Platelet Volume 13.3 fL (9.4-12.3); Monocytes Absolute Auto 0.5 X10*3/uL (0.1-1.2); Monocytes Percent Auto 8.8 % (2-11); Neutrophils Absolute Auto 3.3 x10*3/uL (2.0-8.3); Neutrophils Percent Auto 56.6 % (45-73); Platelet Count 153 X10*3/uL (160-400); Red Cell Distribution Width 13.5 % (11.0-16.0); White Blood Count 5.9 X10*3/uL (4.8-10.8)
[2024-07-11 06:19] LABS: Anion Gap 13 (12-20); Blood Urea Nitrogen 25 mg/dL (9-16); Calcium 9.4 mg/dL (8.4-10.2); Carbon Dioxide 16 mmol/L (22-29); Chloride 115 mmol/L (96-108); Estimated Glomerular Filt Rate 47; Glucose Random 89 mg/dL (60-115); Potassium 4.4 mmol/L (3.3-5.1); Sodium 140 mmol/L (135-145)
== END 2024-07-11 06:14 | disposition home or self-care (01) ==
LOC: HO.MMNH3L 06:13
PROVIDERS: Visit Provider Family Medicine
DX: I10 Essential (primary) hypertension (principal)
CPT/HCPCS: 36415; 80048; 85025

== ENCOUNTER 2024-07-18 06:59 | Outpatient (REF) | payer MEDICARE, MEDICAID, SELFPAY ==
[2024-07-18 06:19] LABS: MANUAL DIFF FLAG NO
[2024-07-18 06:54] LABS: Basophils Percent Auto 0.5 % (0-2); Eosinophils Absolute Auto 0.3 X10*3/uL (0.0-0.4); Eosinophils Percent Auto 4.7 % (0-4); Hematocrit 33.8 % (37.0-47.0); Hemoglobin 10.4 g/dl (12.0-16.0); Imm Gran Abs Auto 0.02 X10*3/uL (0.00-0.03); Imm Gran Pct Auto 0.3 % (0.0-0.4); Lymphocytes Absolute Auto 1.7 X10*3/uL (1.2-4.9); Lymphocytes Percent Auto 27.2 % (20-40); Mean Corpuscular HGB Conc 30.8 g/dl (31.0-35.0); Mean Corpuscular Hemoglobin 26.6 pg (27.0-33.0); Mean Corpuscular Volume 86.4 fL (80.0-98.0); Mean Platelet Volume 13.4 fL (9.4-12.3); Monocytes Absolute Auto 0.5 X10*3/uL (0.1-1.2); Monocytes Percent Auto 7.2 % (2-11); Neutrophils Absolute Auto 3.7 x10*3/uL (2.0-8.3); Neutrophils Percent Auto 60.1 % (45-73); Platelet Count 143 X10*3/uL (160-400); Red Blood Count 3.91 X10*6/uL (4.20-5.50); Red Cell Distribution Width 14.1 % (11.0-16.0); White Blood Count 6.2 X10*3/uL (4.8-10.8)
[2024-07-18 07:09] LABS: Anion Gap 11 (12-20); Blood Urea Nitrogen 27 mg/dL (9-16); Calcium 9.3 mg/dL (8.4-10.2); Carbon Dioxide 12 mmol/L (22-29); Chloride 120 mmol/L (96-108); Estimated Glomerular Filt Rate 40; Glucose Random 90 mg/dL (60-115); Potassium 4.4 mmol/L (3.3-5.1); Sodium 139 mmol/L (135-145)
== END 2024-07-18 07:00 | disposition home or self-care (01) ==
LOC: HO.MMNH3L 06:59
PROVIDERS: Visit Provider Family Medicine
DX: I10 Essential (primary) hypertension (principal)
CPT/HCPCS: 36415; 80048; 85025

== ENCOUNTER 2024-07-25 06:32 | Outpatient (REF) | payer MEDICARE, MEDICAID, SELFPAY ==
[2024-07-25 06:06] LABS: MANUAL DIFF FLAG NO
[2024-07-25 06:15] LABS: Basophils Percent Auto 0.3 % (0-2); Eosinophils Absolute Auto 0.3 X10*3/uL (0.0-0.4); Eosinophils Percent Auto 4.6 % (0-4); Hematocrit 33.8 % (37.0-47.0); Hemoglobin 10.5 g/dl (12.0-16.0); Imm Gran Abs Auto 0.03 X10*3/uL (0.00-0.03); Imm Gran Pct Auto 0.5 % (0.0-0.4); Lymphocytes Percent Auto 32.1 % (20-40); Mean Corpuscular HGB Conc 31.1 g/dl (31.0-35.0); Mean Corpuscular Hemoglobin 26.4 pg (27.0-33.0); Mean Corpuscular Volume 84.9 fL (80.0-98.0); Mean Platelet Volume 12.8 fL (9.4-12.3); Monocytes Absolute Auto 0.5 X10*3/uL (0.1-1.2); Neutrophils Absolute Auto 3.4 x10*3/uL (2.0-8.3); Neutrophils Percent Auto 54.5 % (45-73); Platelet Count 154 X10*3/uL (160-400); Red Blood Count 3.98 X10*6/uL (4.20-5.50); Red Cell Distribution Width 14.4 % (11.0-16.0); White Blood Count 6.1 X10*3/uL (4.8-10.8)
[2024-07-25 06:29] LABS: Anion Gap 12 (12-20); Blood Urea Nitrogen 26 mg/dL (9-16); Calcium 9.4 mg/dL (8.4-10.2); Carbon Dioxide 11 mmol/L (22-29); Chloride 120 mmol/L (96-108); Estimated Glomerular Filt Rate 37; Glucose Random 104 mg/dL (60-115); Potassium 4.8 mmol/L (3.3-5.1); Sodium 138 mmol/L (135-145)
== END 2024-07-25 06:33 | disposition home or self-care (01) ==
LOC: HO.MMNH3L 06:32
PROVIDERS: Visit Provider Family Medicine
DX: I10 Essential (primary) hypertension (principal)
CPT/HCPCS: 36415; 80048; 85025

== ENCOUNTER 2024-08-01 06:18 | Outpatient (REF) | payer MEDICARE, MEDICAID, SELFPAY ==
[2024-08-01 06:03] LABS: MANUAL DIFF FLAG NO
[2024-08-01 06:44] LABS: Basophils Percent Auto 0.5 % (0-2); Eosinophils Absolute Auto 0.2 X10*3/uL (0.0-0.4); Eosinophils Percent Auto 3.5 % (0-4); Hematocrit 33.1 % (37.0-47.0); Hemoglobin 10.5 g/dl (12.0-16.0); Imm Gran Abs Auto 0.02 X10*3/uL (0.00-0.03); Imm Gran Pct Auto 0.3 % (0.0-0.4); Lymphocytes Absolute Auto 1.5 X10*3/uL (1.2-4.9); Lymphocytes Percent Auto 22.7 % (20-40); Mean Corpuscular HGB Conc 31.7 g/dl (31.0-35.0); Mean Corpuscular Hemoglobin 26.8 pg (27.0-33.0); Mean Corpuscular Volume 84.4 fL (80.0-98.0); Mean Platelet Volume 11.9 fL (9.4-12.3); Monocytes Absolute Auto 0.6 X10*3/uL (0.1-1.2); Monocytes Percent Auto 8.7 % (2-11); Neutrophils Absolute Auto 4.3 x10*3/uL (2.0-8.3); Neutrophils Percent Auto 64.3 % (45-73); Platelet Count 163 X10*3/uL (160-400); Red Blood Count 3.92 X10*6/uL (4.20-5.50); Red Cell Distribution Width 14.4 % (11.0-16.0); White Blood Count 6.6 X10*3/uL (4.8-10.8)
[2024-08-01 07:22] LABS: Anion Gap 10 (12-20); Blood Urea Nitrogen 24 mg/dL (9-16); Calcium 9.1 mg/dL (8.4-10.2); Carbon Dioxide 12 mmol/L (22-29); Chloride 121 mmol/L (96-108); Estimated Glomerular Filt Rate 46; Glucose Random 92 mg/dL (60-115); Potassium 4.4 mmol/L (3.3-5.1); Sodium 139 mmol/L (135-145)
== END 2024-08-01 06:19 | disposition home or self-care (01) ==
LOC: HO.MMNH3L 06:18
PROVIDERS: Visit Provider Family Medicine
DX: I10 Essential (primary) hypertension (principal)
CPT/HCPCS: 36415; 80048; 85025

== ENCOUNTER 2024-08-29 06:22 | Outpatient (REF) | payer MEDICARE, MEDICAID, SELFPAY ==
[2024-08-29 06:04] LABS: MANUAL DIFF FLAG NO
[2024-08-29 06:29] LABS: Basophils Percent Auto 0.3 % (0-2); Eosinophils Absolute Auto 0.2 X10*3/uL (0.0-0.4); Eosinophils Percent Auto 2.7 % (0-4); Hematocrit 34.8 % (37.0-47.0); Hemoglobin 11.1 g/dl (12.0-16.0); Imm Gran Abs Auto 0.04 X10*3/uL (0.00-0.03); Imm Gran Pct Auto 0.4 % (0.0-0.4); Lymphocytes Percent Auto 22.2 % (20-40); Mean Corpuscular HGB Conc 31.9 g/dl (31.0-35.0); Mean Corpuscular Volume 84.7 fL (80.0-98.0); Mean Platelet Volume 13.4 fL (9.4-12.3); Monocytes Absolute Auto 0.6 X10*3/uL (0.1-1.2); Monocytes Percent Auto 6.9 % (2-11); Neutrophils Percent Auto 67.5 % (45-73); Platelet Count 133 X10*3/uL (160-400); Red Blood Count 4.11 X10*6/uL (4.20-5.50); Red Cell Distribution Width 15.2 % (11.0-16.0); White Blood Count 8.9 X10*3/uL (4.8-10.8)
[2024-08-29 06:57] LABS: Anion Gap 13 (12-20); Blood Urea Nitrogen 35 mg/dL (9-16); Calcium 9.6 mg/dL (8.4-10.2); Carbon Dioxide 11 mmol/L (22-29); Chloride 119 mmol/L (96-108); Estimated Glomerular Filt Rate 38; Glucose Random 96 mg/dL (60-115); Potassium 4.6 mmol/L (3.3-5.1); Sodium 138 mmol/L (135-145)
== END 2024-08-29 06:23 | disposition home or self-care (01) ==
LOC: HO.MMNH3L 06:22
PROVIDERS: Visit Provider Nurse Practitioner
DX: I10 Essential (primary) hypertension (principal)
CPT/HCPCS: 36415; 80048; 85025

== ENCOUNTER 2024-11-08 16:45 | Outpatient (AMB) | payer MEDICARE, MEDICAID, SELFPAY ==
[2024-11-08 17:01] VITALS: BP 120/84; PULSE 108; O2SAT 98; BMI 17.8
--- NOTE | 2024-11-08 17:01 | A.OFFPC_ITS ---
Vital Signs 11/08/24 17:01 Height 4 ft 11 in Weight 87 lb 15.431 oz BMI 17.8 BP 120/84 Blood Pressure Location Lt brachial Position Sitting Pulse 108 H Pulse Source Pulse Oximeter Pulse Oximetry (%) 98 Oxygen Delivery Method Room Air Intake Visit Reasons: [facility] 4/4 bleeding(personal parts)/liver Roll Line Operator Required: No Accompanied by: Daughter Allergies folic acid [FOLIC ACID] Allergy (Mild, Verified 11/08/24 17:35) AGITATION, visual hallucinations Medication List - Last Reconciled 11/08/24 by Savita Chahal MD acetaminophen 650 mg (2 x 325 mg) PO Q6H PRN adhesive tape ([employer]) As directed adhesive tape ([employer]) As directed [Adult pull ups As directed] amlodipine 5 mg PO DAILY 90 days ascorbic acid (vitamin C) 500 mg PO DAILY 90 days atorvastatin 40 mg PO BEDTIME 90 days calcium carbonate (Calcium 500) 1,000 mg PO BID chlorhexidine gluconate 0.12% mucous membrane clotrimazole 1% 1 appl topical BID 4 weeks [colostomy supplies pouch and paste As directed] diltiazem HCl CD 240 mg PO DAILY 90 days Donut pillow As directed [enteralite infinity bags As directed] ferrous sulfate 325 mg PO BID 90 days food supplemt, lactose-reduced (Ensure oral liquid) 1 ea PO TID 30 days food supplemt, lactose-reduced (Ensure oral liquid) 1 ea PO BID 30 days [gauze split As directed] hydrochlorothiazide 25 mg PO DAILY lidocaine 4% (Aspercreme (lidocaine)) 1 patch topical DAILY PRN mirtazapine 7.5 mg PO BEDTIME 90 days ondansetron HCl mg PO ostomy supplies As directed pantoprazole 40 mg PO DAILY prochlorperazine maleate (Compazine) 5 mg PO BID PRN 5 days sertraline 50 mg PO DAILY 90 days underpads (Certainty Underpads) As directed walker (Ultra-Light Rollator misc) As directed white petrolatum 41% (Aquaphor Healing) 1 appl topical DAILY PRN 30 days zinc sulfate 220 mg PO DAILY zolpidem 5 mg PO BEDTIME PRN Tobacco use date assessed: 03/10/24 Dental Screening Dental Screen Date: 03/10/24 HPI HPI Comments History of Present Illness Details The patient is a 79-year-old female presenting with nausea, vomiting, and altered bowel movements. In September, she was diagnosed with a urinary tract infection, for which she was treated with antibiotics, resulting in some initial improvement. Symptoms later recurred, leading to hospital admission on October 29. While admitted, she demonstrated alarming rectal output despite having a colostomy, prompting a CT scan of the abdomen. The patient also started experiencing nausea and vomiting, and it was noted that her previous pain medications might be affecting her renal function. As such, alternatives like acetaminophen have been administered to manage pain effectively. Additionally, the patient shows signs of malnutrition with a low BMI, partly attributed to reduced appetite and nutritional intake. Recent lab results showed normal potassium but reduced magnesium levels. Currently, the prospect of her dehydration and continued symptoms are causing concerns that may necessitate further hospitalization. She has hypertension well controlled with medications. Also has malnutrition and I will order ensure for her. She also has mild major depression, hypertension and atrial fibrillation on medications. Currently in a wheelchair. Also has chronic kidney disease stage 3 and tramadol will be discontinue as well as NSAIDs. [facility] Medical History (Updated 11/08/24 @ 17:39 by Savita Chahal MD) Opioid dependence Stage 2 skin ulcer of sacral region Atrial fibrillation Jejunostomy present Anemia Jaundice Afib Chronic GERD Mild recurrent major depression Jejunostomy tube leak Colostomy in place Malnutrition Localized swelling of both lower legs Pneumonia Hospital discharge follow-up B12 deficiency Pure hypercholesterolemia Essential hypertension Surgical History H/O ileostomy Family History Mother Diabetes Father No problems noted. Social History Housing: Other (half-way) Alcohol intake: former Patient Tobacco Use Status: Current someday Tobacco user Tobacco use type: Cigarette Cigarettes Per Day: 1 e-Cigarette/Vaping Use: Never Used Second Hand Smoke Exposure: No service: No Current occupational status: retired Cognitive needs: Yes Hearing needs: No Vision needs: No Questionnaire PHQ-9 Over the last 2 weeks, how often have you been bothered by any of the following problems? 1. Little interest or pleasure in doing things: several days 2. Feeling down, depressed, or hopeless: several days 3. Trouble falling or staying asleep, or sleeping too much: several days 4. Feeling tired or having little energy: several days 5. Poor appetite or overeating: several days 6. Feeling bad about yourself - or that you are a failure or have let yourself or your family down: not at all 7. Trouble concentrating on things, such as reading the newspaper or watching television: not at all 8. Moving or speaking so slowly that other people could have noticed. Or the opposite - being so fidgety or restless that you have been moving around a lot more than usual: not at all 9. Thoughts that you would be better off or of hurting yourself in some way: not at all Total score: 5 Depression Screening Interpretation: Positive Depression Screening Follow-up: Existing condition and Follow-up Visit Requested Depression Screening Done: Yes 47751 - PHQ-9 Billing: Yes Source: Developed by Drs. Enoch Vicente, Helena Mares, Gus Knight and colleagues, with an educational pam from [employer]. Thrive Questionnaire Date Thrive assessed: 11/08/24 I am a: Parent/Caregiver What is your living situation today?: I have a steady place to live Within the past 12 months, did the food you bought not last and you didn't have the money to get more?: Never true Within the past 12 months, did you worry whether your food would run out before you got money to buy more?: Never true Do you have trouble paying for medicines?: No Do you have trouble getting transportation to medical appointments?: No Do you have trouble paying your heating and electricity bill?: No Do you have trouble taking care of your child, family member or friend?: No Do you have trouble with day-to-day activities such as bathing, preparing meals, shopping, managing finances, etc.?: No Are you currently unemployed and looking for a job?: No Are you interested in more education?: No Please select the resources that you would like help with: None Currently or been in a relationship where the following occur: No concerns reported THRIVE Score: 0 AUDIT C Alcohol Use Questionnaire (AUDIT-C) 1. How often do you have a drink containing alcohol?: Never Total Score: 0 Score Reviewed/Action Taken: No JULIO-7 AMB Questionnaire JULIO-7 Date JULIO - 7 assessed: 11/08/24 Feeling nervous, anxious, or on edge: 1 = Several days Not being able to stop or control worryin = Not at all Worrying too much about different things: 1 = Several days Trouble relaxin = Not at all Being so restless that it is hard to sit still: 0 = Not at all Becoming easily annoyed or irritable: 1 = Several days Feeling afraid as if something awful might happen: 0 = Not at all Total JULIO-7 score (0-4 normal; 5-9 mild; 10-14 moderate; 15-21 severe): 3 Source: Developed by Drs. Enoch Vicente, Helena Mares, Gus Knight and colleagues, with an educational pam from [employer]. JULIO-7 Assessment Billing JULIO-7 Assessment Tool: JULIO-7 Assessment 80328 Review of Systems Const All systems reviewed & are unremarkable except as noted in HPI and below Card Denies chest pain at rest, Denies chest pain with activity, Denies edema, Denies irregular heart rhythm, Denies claudication, Denies dyspnea, Denies dyspnea on exertion, Denies orthopnea, Denies paroxysmal nocturnal dyspnea and Denies slow heart rate Resp Denies cough, Denies dyspnea and Denies dyspnea on exertion GI Denies abdominal pain, Denies change in bowel habits, Denies excessive flatus, Reports nausea and Reports vomiting Denies urinary incontinence, Denies urinary hesitancy and Denies urinary urgency Musc Denies abnormal gait, Denies atrophy, Denies deformity and Denies limited range of motion Skin/Breast Denies bleeding lesions, Denies changing lesions and Denies rash Neuro Denies abnormal gait and Denies lack of coordination Physical exam (Primary Care) Vital Signs: Last Vital Signs Pulse 108 H 11/08/24 17:01 BP 120/84 11/08/24 17:01 Pulse Ox 98 11/08/24 17:01 Oxygen Delivery Method Room Air 11/08/24 17:01 BMI result Body Mass Index 17.8 BMI Assessment/Plan discussion: Low BMI Low, Plan discussed: lifestyle, increase calorie intake and dietary Tobacco/Smoking Status: Tobacco use Status Tobacco use date assessed 03/10/24 11/08/24 17:04 Patient Tobacco Use Status Current someday Tobacco 11/08/24 17:04 Tobacco use type Cigarette 11/08/24 17:04 e-Cigarette/Vaping Use Never Used 11/08/24 17:04 Are you ready to quit: No Tobacco cessation counseling provided: No PHQ-9: PHQ-9 Score PHQ-9: Total score 5 11/08/24 17:16 Depression Screening Interpretation: Positive Depression Screening Follow-up: Existing condition and Follow-up Visit Requested Thrive Assessment: Date of Thrive Assessment Date Thrive assessed 11/08/24 11/08/24 17:16 Currently or been in a relationship where the following occur: No concerns reported Resp Effort & Inspection: normal respiratory effort Auscultation: clear to auscultation bilaterally Cardio Jugular venous distension: no JVD Rate: regular rate Rhythm: regular rhythm Heart sounds: S1 normal heart sound present and S2 normal heart sound present GI Other: colostomy in place Inspection: Yes normal to inspection Palpation (GI): Soft to palpation and nontender Auscultation: normal bowel sounds Coding Level of Care Code Est Pt Level 4 (72762) Complex EM visit Add On G2211 Diagnoses Malnutrition E46 Stage 3b chronic kidney disease N18.32 Chronic kidney disease stage 3 subtype: stage 3b (GFR 30-44) Afib I48.91 Jejunostomy present Z93.4 Mild recurrent major depression F33.0 Essential hypertension I10 Additional Codes PHQ-9 - 12717 - PHQ-9 Billing: Yes ([id number]) JULIO-7 Assessment Billing - JULIO-7 Assessment Tool: JULIO-7 Assessment 79056 ([id number]) Time Spent (min) 21 Assessment & Plan Assessment & Plan (1) Malnutrition: Code(s): E46 - Unspecified protein-calorie malnutrition Category: Medical (2) CKD (chronic kidney disease) stage 3, GFR 30-59 ml/min: Code(s): N18.30 - Chronic kidney disease, stage 3 unspecified Category: Medical Qualifiers: Chronic kidney disease stage 3 subtype: stage 3b (GFR 30-44) Qualified Code(s): N18.32 - Chronic kidney disease, stage 3b (3) Afib: Code(s): I48.91 - Unspecified atrial fibrillation Category: Medical (4) Jejunostomy present: Code(s): Z93.4 - Other artificial openings of gastrointestinal tract status Category: Medical (5) Mild recurrent major depression: Code(s): F33.0 - Major depressive disorder, recurrent, mild Category: Medical (6) Essential hypertension: Code(s): I10 - Essential (primary) hypertension Category: Medical Plan Management of nausea, vomiting, and potential bowel obstruction is crucial, particularly given the risks associated with colostomy maintenance. Pain management should continue with acetaminophen to prevent renal impairment. Improving nutritional intake is essential to combat malnutrition, considering nutritional supplements and parenteral alternatives. Monitoring renal function remains critical due to the history of medication-induced nephrotoxicity. Rehospitalization may be required should symptoms persist or become unmanageable, potentially coordinated through her daughter with at-home lab capabilities. Assessing replacement of the stolen walker and dietary adjustments are essential for the patient?s wellbeing. Encouraging smoking cessation can significantly impact the patient's overall health status. Patient was informed and verbally consented to the use of an ambient scribe for clinic note documentation during this visit. We discussed the challenges of managing symptoms related to nausea, vomiting, and altered bowel functions in a colostomy patient. The likely diagnosis integrates the potential for bowel obstruction or complications associated with the colostomy. We reviewed the impact of her current medications on renal health and concluded to use acetaminophen for pain management. I expressed the need for improved nutritional intake and explained the potential risks of malnutrition. The possibility of rehospitalization was considered if symptoms fail to improve. Emphasis was placed on the necessity for regular monitoring of renal function and ensuring she remains well-hydrated and nourished. We also considered dietary adjustments and social support measures, including obtaining a new walker. The patient was informed of the benefits of smoking cessation. Orders: Orders Complete Blood Count Auto Diff Today D64.9 - Anemia, unspecified IRON PROFILE Today D64.9 - Anemia, unspecified Comprehensive Met. Panel Today E83.42 - Hypomagnesemia Magnesium Today E83.42 - Hypomagnesemia Medications: New prochlorperazine maleate (Compazine) 5 mg PO BID 5 days PRN 10 tabs 0RF nausea and vomiting food supplemt, lactose-reduced (Ensure oral liquid) 1 ea PO BID 30 days 3,792 mL 0RF E46 - Unspecified protein-calorie malnutrition, Z93.4 - Other artificial openings of gastrointestinal tract status Refilled food supplemt, lactose-reduced (Ensure oral liquid) 1 ea PO TID 30 days 5,688 mL 6RF E46 - Unspecified protein-calorie malnutrition, K94.13 - Enterostomy malfunction, Z93.3 - Colostomy status underpads (Certainty Underpads) As directed 40 ea 6RF K94.13 - Enterostomy malfunction, Z93.3 - Colostomy status walker (Ultra-Light Rollator misc) As directed 1 ea 0RF M51.369 - Other intervertebral disc degeneration, lumbar region without mention of lumbar back pain or lower extremity pain [Adult pull ups] As directed 100 ea 0RF N39.41 - Urge incontinence, Z93.3 - Colostomy status Patient Instructions: - Continue prescribed acetaminophen for pain management. - Increase fluid and nutrient intake; consider supplementation if dietary intake remains poor. - Avoid ibuprofen and tramadol due to risk of renal impairment. - Monitor symptoms closely; seek re-admittance if symptoms worsen, particularly dehydration or severe gastrointestinal distress. - Arrange for a replacement walker for enhanced mobility. - Consider dietary consultation for optimal nutritional support. - Encourage smoking cessation to improve overall health. - Family to monitor symptoms and coordinate with daughter for at-home lab tests or further care as needed. - Follow up with medical care providers as advised.
--- OUTSIDE RECORDS SUMMARY | 2024-11-08 19:02 | XMS_ITS | Continuity of Care Document ---
Author Organization [facility] Address [address] [address] Phone Care Team Providers Care Manager Fire Name Role Phone Cherrie Parrish NP Unavailable Unavailable Advance Directives Directive Yes / No Effective Date File Name No Information Encounters Encounter Description Practice Location Reason(s) For Visit Diagnoses Date Provider [facility], [address], [id number], [place] tel:[phone] [address] [place] [address] No Information [address] [place], [place], [id number], [place]. tel:[phone] Family History Family Member Type Diagnosis Age At Onset No Information Payers Payer name Insurance type Covered democrat ID Authoriza tion(s) No Information Social History Type Description Quantity Date Captured Comments Sex Female Smoking Status No Information Chief Complaint And Reason For Visit No Information History Of Present Illness Encounter Date Complaint History Of Prese nt Illness No Information Instructions Date Instruction Additional Infor mation No Information Assessments Type Assessment Date No Information
== END 2024-11-08 17:50 | disposition home or self-care (01) ==
LOC: HO.HMCH 16:45
PROVIDERS: PCP Internal Medicine; Visit Provider Internal Medicine
DX: I12.9 Hypertensive chronic kidney disease with stage 1 through stage 4 chronic kidney disease, or unspecified chronic kidney disease (principal); E46 Unspecified protein-calorie malnutrition; N18.32 Chronic kidney disease, stage 3b; I48.91 Unspecified atrial fibrillation; Z93.4 Other artificial openings of gastrointestinal tract status; F33.0 Major depressive disorder, recurrent, mild

== ENCOUNTER → 2024-11-08 16:45 | Outpatient (BNVA) | payer MEDICARE, MEDICAID, SELFPAY | PROVIDERS: PCP Internal Medicine; Visit Provider Internal Medicine | DX: E46 Unspecified protein-calorie malnutrition (principal); I48.91 Unspecified atrial fibrillation; I12.9 Hypertensive chronic kidney disease with stage 1 through stage 4 chronic kidney disease, or unspecified chronic kidney disease; N18.32 Chronic kidney disease, stage 3b; F33.0 Major depressive disorder, recurrent, mild; Z93.4 Other artificial openings of gastrointestinal tract status | CPT/HCPCS: 96127; 99212 ==